=== PATIENT | male | born 1980 | race Caucasian/White ===

== ENCOUNTER 2016-03-31 13:08 | Inpatient (IN) | payer BC, OTHER ==
[~2016-03-31] VITALS: Ht 175.3 cm; Wt 75.0 kg
[~2016-03-31 13:08] MED LIST: BACI500O2 TOP; BACL20TA PO; CLON.5 PO; HYDR-3516 PO; LEVO50TA48 PO; MOBI7.5S PO; OMEP20CA5 PO; PAXI40TA PO; PERI8.6T PO; PROP60TA PO; TAMS5CAP OR; ZOFR4TAB3 SL
[2016-03-31 13:32] VITALS: BP 135/71; PULSE 95; RESP 20; TEMP 98.3; O2SAT 98
--- NOTE | 2016-03-31 13:37 | RADRPT ---
EXAM DATE/TIME: 03/31/2016 13:30 [facility] COMPARISON: No previous studies available for comparison. INDICATIONS : Fever. Syncopal episode. MEDICAL HISTORY : Unobtainable. SURGICAL HISTORY : Unobtainable. ENCOUNTER: Initial ACUITY: 1 day PAIN SCORE: Non-responsive. LOCATION: Bilateral chest FINDINGS: A single view of the chest demonstrates the lungs to be symmetrically aerated without evidence of mas s, infiltrate or effusion. The cardiomediastinal contours are unremarkable. Osseous structures are intact. CONCLUSION: No acute disease. Balwinder Goodrich MD on March 31, 2016 at 13:33 Board Certified Radiologist. This report was verified electronically.
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
[2016-03-31] MEDS ORDERED: LORazepam 2 MG/ML VIAL IV PUSH ONE (13:45)
[2016-03-31 13:49] LABS: AUTOMATED NEUTROPHIL # 5.1 TH/MM3 (1.8-7.7); BASOPHIL % 0.2 % (0.0-2.0); EOSINOPHIL % 0.1 % (0.0-4.0); HEMATOCRIT 39.1 % (39.0-51.0); HEMO FLAGS DIFF FINAL; LYMPHOCYTE # 0.9 TH/MM3 (1.0-4.8); MEAN CELL VOLUME 77.8 FL (80.0-100.0); MEAN CORPUSCULAR HEMOGLOBIN 26.5 PG (27.0-34.0); NEUT % 80.7 % (16.0-70.0); PLATELET COUNT 326 TH/MM3 (150-450); RED BLOOD COUNT 5.03 MIL/MM3 (4.50-5.90); RED CELL DISTRIBUTION WIDTH 15.5 % (11.6-17.2); WHITE BLOOD COUNT 6.3 TH/MM3 (4.0-11.0)
[2016-03-31 13:50] LABS: BLOOD, URINE TRACE (NEG); GLUCOSE,URINE NEG (NEG); HYALINE CAST, URINE 1 /lpf (RARE); KETONE, URINE 10 mg/dL (NEG); MUCUS URINE FEW /lpf (OCC); NITRITE,URINE NEG (NEG); SQUAMOUS EPITHELIAL CELL URINE <1 /hpf (0-5); TRANSITIONAL EPI CELLS, URINE <1 /hpf; URINE COLOR YELLOW (YELLW/STRAW)
[2016-03-31 13:52] LABS: COMMENT (UR) CULT NOT INDICATED; CULTURE IF INDICATED CULT NOT INDICATED
[2016-03-31 13:55] LABS: AMPHETAMINE, URINE NEG (NEG); BARBITURATES, URINE NEG (NEG); COCAINE, URINE NEG (NEG)
[2016-03-31 15:24] LABS: ALKALINE PHOSPHATASE 79 U/L (45-117); TOTAL BILIRUBIN ADULT 0.6 MG/DL (0.2-1.0)
[2016-03-31 15:35] LABS: ALT (GPT) 27 U/L (12-78); ANION GAP 11 MEQ/L (5-15); AST (GOT) 26 U/L (15-37); BLOOD UREA NITROGEN 10 MG/DL (7-18); CHLORIDE 96 MEQ/L (98-107); GLOMERULAR FILTRATION RATE 80 ML/MIN (>89); POTASSIUM 4.5 MEQ/L (3.5-5.1); SODIUM (NA) 129 MEQ/L (136-145)
[2016-03-31 15:36] LABS: ACETAMINOPHEN LESS THAN 2.0 MCG/ML (10.0-30.0)
--- NOTE | 2016-03-31 15:58 | RADRPT ---
EXAM DATE/TIME: 03/31/2016 14:33 [facility] COMPARISON: No previous studies available for comparison. INDICATIONS : Altered mental status. RADIATION DOSE: 43.82 CTDIvol (mGy) MEDICAL HISTORY : Non-responsive. SURGICAL HISTORY : Non-responsive. ENCOUNTER: Initial ACUITY: 1 day PAIN SCALE: 3/10 LOCATION: cranial TECHNIQUE: Multiple contiguous axial images were obtained of the head. Using automated exposure control and adj ustment of the mA and/or kV according to patient size, radiation dose was kept as low as reasonably a chievable to obtain optimal diagnostic quality images. FINDINGS: CEREBRUM: The ventricles are normal for age. No evidence of midline shift, mass lesion, hemorrhage or acute in farction. No extra-axial fluid collections are seen. POSTERIOR FOSSA: The cerebellum and brainstem are intact. The 4th ventricle is midline. The cerebellopontine angle i s unremarkable. EXTRACRANIAL: The visualized portion of the orbits is intact. SKULL: The calvaria is intact. No evidence of skull fracture. CONCLUSION: 1. No acute intracranial abnormalities. Shane Alvarez MD on March 31, 2016 at 15:55 Board Certified Radiologist. This report was verified electronically.
[2016-03-31 18:10] VITALS: BP 128/70; PULSE 111; RESP 20; TEMP 98.8; O2SAT 97
[2016-03-31] MEDS ORDERED: BACL20TA PO (18:25)
[2016-03-31] MEDS ORDERED: PAXI40TA PO (18:25)
[2016-03-31] MEDS ORDERED: PRIL20CA9 PO (18:25)
[2016-03-31] MEDS ORDERED: PERI8.6T PO (18:25)
[2016-03-31] MEDS ORDERED: HYDR-3516 PO (18:25)
[2016-03-31] MEDS ORDERED: PROP60TA PO (18:25)
[2016-03-31] MEDS ORDERED: CLON.5 PO (18:25)
[2016-03-31] MEDS ORDERED: BACI500O61 TOPICAL (18:25)
[2016-03-31] MEDS ORDERED: SODIUM CHLORIDE 0.9% FLUSH 5 ML FLUSH FLUSH PRN (19:45)
[2016-03-31] MEDS ORDERED: ONDANSETRON HCL 4 MG/2 ML VIAL IVP PRN (19:45)
[2016-03-31] MEDS ORDERED: BISACODYL 10 MG SUPP PR PRN (19:45)
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
[2016-03-31 19:50] VITALS: BP 163/77; PULSE 97; RESP 18; O2SAT 99
[2016-03-31] MEDS: SODIUM CHLOR 0.9% 1000 ML INJ 1,000 ML IV SCH (20:15)
[2016-03-31] MEDS: SODIUM CHLORIDE 0.9% FLUSH 5 ML FLUSH FLUSH SCH (20:15)
[2016-03-31] MEDS: PROPRANOLOL HCL 20 MG TAB PO SCH (21:50)
[2016-03-31] MEDS: BACLOFEN 20 MG TAB PO SCH (21:50)
[2016-04-01] VITALS (9 sets, daily range): BP systolic 113–145; BP diastolic 55–92; PULSE 68–89; RESP 19–21; TEMP 97–98.9; O2SAT 97–99
[2016-04-01] MEDS: ACETAMINOPHEN 325 MG TAB PO PRN ×2 (00:37→23:36)
[2016-04-01] MEDS: LORazepam 2 MG/ML VIAL IV PUSH PRN (01:33)
[2016-04-01] MEDS: SODIUM CHLOR 0.9% 1000 ML INJ 1,000 ML IV SCH ×2 (03:47→15:38)
[2016-04-01 05:29] LABS: AUTOMATED NEUTROPHIL # 3.8 TH/MM3 (1.8-7.7); BASOPHIL % 0.2 % (0.0-2.0); EOSINOPHIL % 0.4 % (0.0-4.0); HEMATOCRIT 37.4 % (39.0-51.0); HEMO FLAGS DIFF FINAL; LYMPH % 27.9 % (9.0-44.0); LYMPHOCYTE # 1.8 TH/MM3 (1.0-4.8); MEAN CELL VOLUME 77.9 FL (80.0-100.0); MEAN CORPUSCULAR HEMOGLOBIN 26.4 PG (27.0-34.0); MEAN CORPUSCULAR HGB CONC 33.9 % (32.0-36.0); MONO % 12.3 % (0.0-8.0); NEUT % 59.2 % (16.0-70.0); PLATELET COUNT 319 TH/MM3 (150-450); RED BLOOD COUNT 4.79 MIL/MM3 (4.50-5.90); RED CELL DISTRIBUTION WIDTH 15.6 % (11.6-17.2); WHITE BLOOD COUNT 6.4 TH/MM3 (4.0-11.0)
[2016-04-01 05:35] LABS: ALT (GPT) 25 U/L (12-78); ANION GAP 9 MEQ/L (5-15); AST (GOT) 16 U/L (15-37); BLOOD UREA NITROGEN 11 MG/DL (7-18); CHLORIDE 99 MEQ/L (98-107); GLOMERULAR FILTRATION RATE 87 ML/MIN (>89); POTASSIUM 3.9 MEQ/L (3.5-5.1); SODIUM (NA) 132 MEQ/L (136-145)
[2016-04-01 05:39] LABS: ALKALINE PHOSPHATASE 70 U/L (45-117); TOTAL BILIRUBIN ADULT 0.6 MG/DL (0.2-1.0)
[2016-04-01] MEDS ORDERED: PNEUMOCOCCAL POLYVALENT INJ 25 MCG/0.5 ML SYR IM ONE (09:00)
[2016-04-01] MEDS ORDERED: INFLUENZA VIRUS VACCINE (QUADRIVALENT) 0.5 ML SYR IM ONE (09:00)
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
[2016-04-01] MEDS: PARoxetine HCL 20 MG TAB PO SCH (10:54)
[2016-04-01] MEDS: BACLOFEN 20 MG TAB PO SCH ×4 (10:54→22:04)
[2016-04-01] MEDS: SODIUM CHLORIDE 0.9% FLUSH 5 ML FLUSH FLUSH SCH ×2 (10:54→21:00)
[2016-04-01] MEDS: clonazePAM 0.5 MG TAB PO SCH ×3 (10:54→18:00)
[2016-04-01] MEDS: PROPRANOLOL HCL 20 MG TAB PO SCH ×2 (10:55→22:05)
--- NOTE | 2016-04-01 11:54 | EKG ---
Date Performed: 03/31/2016 Time Performed: 13:45:27 PTAGE: 89 years EKG: Sinus rhythm NORMAL ECG NO PREVIOUS TRACING DOCTOR: Elaine Arciniega Interpretating Date/Time 04/01/2016 11:54:06
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
[2016-04-02] VITALS (9 sets, daily range): BP systolic 119–145; BP diastolic 64–87; PULSE 64–88; RESP 18–21; TEMP 97.9–100.2; O2SAT 94–99
--- NOTE | 2016-04-02 05:32 | MG ---
cc: JEVON YANG Lab No: [id number] Date: 04/01/2016 Age: Sex: M Race: NOTE Hyperventilation not performed. INDICATIONS Possible seizure versus psych. Found lying on the ground, shaking all over. He has dystonia. MEDICATIONS 1. Ativan. 2. Roxicodone. 3. Klonopin. 4. Paxil. FINDINGS Some blink and mini-blink activity is noted. Diffuse low amplitude beta rhythms are seen. Some bitemporal muscle artifact is noted. There are no hemisphere asymmetries, still a lot of muscle artifact is seen, this seen bitemporally. The patient is noted to have eye fluttering, sitting up, arms tremoring but this obviously correlates with mini-blink activity and blink artifact. His eyes were noted to roll around. IMPRESSION This is a normal EEG. A lot of blink artifact is noted. No focal abnormalities are noted. No seizure activity is seen. A repeat EEG when he is not blinking so much I think would be helpful. MD JOSSY Monte/NAVID /11:42 PM /5:27 AM
[2016-04-02] MEDS: PARoxetine HCL 20 MG TAB PO SCH (09:00)
[2016-04-02] MEDS: BACLOFEN 20 MG TAB PO SCH ×4 (09:25→21:06)
[2016-04-02] MEDS: PROPRANOLOL HCL 20 MG TAB PO SCH ×2 (09:25→21:06)
[2016-04-02] MEDS: clonazePAM 0.5 MG TAB PO SCH ×3 (09:25→18:00)
[2016-04-02] MEDS: SODIUM CHLORIDE 0.9% FLUSH 5 ML FLUSH FLUSH SCH ×2 (09:26→21:06)
[2016-04-02] MEDS: ACETAMINOPHEN 325 MG TAB PO PRN (12:25)
[2016-04-02] MEDS ORDERED: PAXI40TA PO (12:30)
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
[2016-04-02] MEDS: LORazepam 2 MG/ML VIAL IV PUSH PRN (22:07)
[2016-04-03 05:59] VITALS: BP 140/66; PULSE 87; RESP 18; TEMP 98; O2SAT 96
[2016-04-03] MEDS: LORazepam 2 MG/ML VIAL IV PUSH PRN (06:20)
[2016-04-03 08:00] VITALS: PULSE 62
[2016-04-03 08:34] VITALS: BP 123/77; PULSE 63; RESP 18; TEMP 98.5; O2SAT 100
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
[2016-04-03] MEDS: BACLOFEN 20 MG TAB PO SCH ×2 (09:52→12:58)
[2016-04-03] MEDS: clonazePAM 0.5 MG TAB PO SCH ×2 (09:52→12:58)
[2016-04-03] MEDS: PROPRANOLOL HCL 20 MG TAB PO SCH (09:53)
[2016-04-03] MEDS: PARoxetine HCL 20 MG TAB PO SCH (09:53)
[2016-04-03] MEDS: SODIUM CHLORIDE 0.9% FLUSH 5 ML FLUSH FLUSH SCH (09:54)
[2016-04-03 11:35] VITALS: BP 122/66; PULSE 70; RESP 18; O2SAT 96
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
[2016-04-03] MEDS ORDERED: CLON.5 PO (11:48)
[2016-04-03] MEDS ORDERED: BACL20TA PO (11:49)
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
== END 2016-04-03 15:55 | disposition home or self-care (01) | DRG 71 ==
LOC: NEPC 13:08 → NEDA 19:26 → MERGE 19:46 → OBSVTOIN 19:46 → EDBD 19:46 → NEDA 20:37 → NEPHCDU 23:56
PROVIDERS: ADMIT Hospitalist; ATTEND Hospitalist
DX: G93.40 Encephalopathy, unspecified (principal); E87.1 Hypo-osmolality and hyponatremia; G24.8 Other dystonia; F41.9 Anxiety disorder, unspecified; R53.1 Weakness; F32.9 Major depressive disorder, single episode, unspecified; Z87.820 Personal history of traumatic brain injury; E86.0 Dehydration; R31.9 Hematuria, unspecified; F43.10 Post-traumatic stress disorder, unspecified
CPT/HCPCS: 70450; 71010; 76937; 80053; 80307; 80320; 80329; 81001; 85025; 93005; 95819; G0480; J2060; J7030

== ENCOUNTER 2016-06-10 15:05 | Emergency (ER) | payer BC, OTHER ==
[~2016-06-10 15:05] MED LIST changes: +BACI500O61 TOPICAL; +PRIL20CA9 PO
[2016-06-10] MEDS ORDERED: SODIUM CHLOR 0.9% 1000 ML INJ 1,000 ML IV ONE (15:22)
[2016-06-10] MEDS ORDERED: ONDANSETRON HCL 4 MG/2 ML VIAL IVP ONE (15:30)
[2016-06-10] MEDS ORDERED: SODIUM CHLORIDE 0.9% FLUSH 10 ML FLUSH IVF PRN (15:30)
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
[2016-06-10] MEDS ORDERED: PROZ40CA PO (15:35)
[2016-06-10] MEDS ORDERED: CLAR10CA3 PO (15:35)
[2016-06-10] MEDS ORDERED: OXCA600T PO (15:35)
[2016-06-10 16:07] LABS: AUTOMATED NEUTROPHIL # 2.9 TH/MM3 (1.8-7.7); BASOPHIL % 0.8 % (0.0-2.0); EOSINOPHIL # 0.1 TH/MM3 (0-0.4); EOSINOPHIL % 2.1 % (0.0-4.0); HEMATOCRIT 31.7 % (39.0-51.0); LYMPHOCYTE # 1.7 TH/MM3 (1.0-4.8); MEAN CELL VOLUME 76.8 FL (80.0-100.0); MEAN CORPUSCULAR HEMOGLOBIN 24.7 PG (27.0-34.0); MEAN CORPUSCULAR HGB CONC 32.2 % (32.0-36.0); MONO % 9.5 % (0.0-8.0); NEUT % 55.6 % (16.0-70.0); PLATELET COUNT 471 TH/MM3 (150-450); RED BLOOD COUNT 4.13 MIL/MM3 (4.50-5.90); RED CELL DISTRIBUTION WIDTH 15.1 % (11.6-17.2); WHITE BLOOD COUNT 5.2 TH/MM3 (4.0-11.0)
[2016-06-10 16:13] LABS: HEMO FLAGS AUTO DIFF
[2016-06-10 16:17] VITALS: BP_SYST 138; BP_SYST 142; BP_SYST 147; BP_DIAS 60; BP_DIAS 68; RESP 16; RESP 18; O2SAT 98
[2016-06-10 16:25] LABS: CHLORIDE 102 MEQ/L (98-107); POTASSIUM 3.6 MEQ/L (3.5-5.1); SODIUM (NA) 137 MEQ/L (136-145)
[2016-06-10 16:28] LABS: ANION GAP 12 MEQ/L (5-15)
[2016-06-10 16:29] LABS: BLOOD UREA NITROGEN 11 MG/DL (7-18); MAGNESIUM 2.2 MG/DL (1.5-2.5)
[2016-06-10 16:31] LABS: ALT (GPT) 28 U/L (12-78)
[2016-06-10 16:32] LABS: AST (GOT) 22 U/L (15-37); GLOMERULAR FILTRATION RATE 112 ML/MIN (>89)
[2016-06-10 16:33] LABS: TOTAL BILIRUBIN ADULT 0.4 MG/DL (0.2-1.0)
[2016-06-10 16:34] LABS: ALKALINE PHOSPHATASE 78 U/L (45-117)
--- NOTE | 2016-06-10 16:37 | RADHPO ---
EXAM DATE/TIME: 06/10/2016 16:18 [facility] COMPARISON: No previous studies available for comparison. INDICATIONS : Chest discomfort. MEDICAL HISTORY : None. SURGICAL HISTORY : None. ENCOUNTER: Initial ACUITY: 1 day PAIN SCORE: 6/10 LOCATION: Bilateral chest FINDINGS: A single view of the chest demonstrates heart size upper limits normal. No pneumothorax. No focal con solidation or significant effusion. No acute bony abnormality. CONCLUSION: 1. No acute findings. Shane Alvarez MD on June 10, 2016 at 16:34 Board Certified Radiologist. This report was verified electronically.
[2016-06-10 16:42] LABS: SCAN/DIFF AUTO DIFF CONFIRMED
--- NOTE | 2016-06-10 17:03 | RADHPO ---
EXAM DATE/TIME: 06/10/2016 16:33 [facility] COMPARISON: No previous studies available for comparison. INDICATIONS : Fell and hit left temporal area. RADIATION DOSE: 59.11 CTDIvol (mGy) MEDICAL HISTORY : Cervical dystonia SURGICAL HISTORY : None. ENCOUNTER: Initial ACUITY: 1 day PAIN SCALE: 3/10 LOCATION: Left temporal TECHNIQUE: Multiple contiguous axial images were obtained of the head. Using automated exposure control and adj ustment of the mA and/or kV according to patient size, radiation dose was kept as low as reasonably a chievable to obtain optimal diagnostic quality images. FINDINGS: CEREBRUM: The ventricles are normal for age. No evidence of midline shift, mass lesion, hemorrhage or acute in farction. No extra-axial fluid collections are seen. POSTERIOR FOSSA: The cerebellum and brainstem are intact. The 4th ventricle is midline. The cerebellopontine angle i s unremarkable. EXTRACRANIAL: The visualized portion of the orbits is intact. SKULL: The calvaria is intact. No evidence of skull fracture. CONCLUSION: Normal examination for a patient of this age. Shaen Alvarez MD on June 10, 2016 at 16:55 Board Certified Radiologist. This report was verified electronically.
--- NOTE | 2016-06-10 17:07 | RADHPO ---
EXAM DATE/TIME: 06/10/2016 16:33 [facility] COMPARISON: CT CERVICAL SPINE W/O CONTRAST, February 05, 2016, 6:48. INDICATIONS : Fell and hit left side of head. RADIATION DOSE: 26.69 CTDIvol (mGy) MEDICAL HISTORY : Cervical dystonia. SURGICAL HISTORY : None. ENCOUNTER: Initial ACUITY: 1 day PAIN SCALE: 4/10 LOCATION: neck TECHNIQUE: Volumetric scanning of the cervical spine was performed. Multiplanar reconstructions in the sagittal, coronal and oblique axial planes were performed. Using automated exposure control and adjustment o f the mA and/or kV according to patient size, radiation dose was kept as low as reasonably achievable to obtain optimal diagnostic quality images. FINDINGS: VERTEBRAE: Normal vertebral body height. ALIGNMENT: No evidence of subluxation. C2-C3: The bony spinal canal is normal in size. No evidence of disc bulge or herniation. The neural forami na are bilaterally patent. C3-C4: The bony spinal canal is normal in size. No evidence of disc bulge or herniation. The neural forami na are bilaterally patent. C4-C5: The bony spinal canal is normal in size. No evidence of disc bulge or herniation. The neural forami na are bilaterally patent. C5-C6: The bony spinal canal is normal in size. No evidence of disc bulge or herniation. The neural forami na are bilaterally patent. C6-C7: The bony spinal canal is normal in size. No evidence of disc bulge or herniation. The neural forami na are bilaterally patent. C7-T1: The bony spinal canal is normal in size. No evidence of disc bulge or herniation. The neural forami na are bilaterally patent. CONCLUSION: 1. No acute findings. Slight reversal of normal cervical lordosis. No significant change from Decembe r 2016. Shane Alvarez MD on June 10, 2016 at 17:02 Board Certified Radiologist. This report was verified electronically.
[2016-06-10] MEDS ORDERED: KETOROLAC TROMETHAMINE 30 MG/ML (IVP) VIAL IV PUSH ONE (17:15)
[2016-06-10 17:22] LABS: AMPHETAMINE, URINE NEG (NEG); BARBITURATES, URINE NEG (NEG); COCAINE, URINE NEG (NEG)
--- NOTE | 2016-06-11 11:46 | EKG ---
Date Performed: 06/10/2016 Time Performed: 15:19:20 PTAGE: 36 years EKG: Sinus rhythm . Normal ECG PREVIOUS TRACING : 12/09/2014 22.08 Compared to prior tracing no significant change DOCTOR: Emmanuel Raman Interpretating Date/Time 06/11/2016 11:45:30
== END 2016-06-10 17:38 | disposition home or self-care (01) ==
LOC: PHED 15:05
DX: R55 Syncope and collapse (principal); S09.90XA Unspecified injury of head, initial encounter; R51 Headache; M54.2 Cervicalgia; K21.9 Gastro-esophageal reflux disease without esophagitis; G24.9 Dystonia, unspecified; W22.09XA Striking against other stationary object, initial encounter; Y93.89 Activity, other specified; Y92.511 Restaurant or cafe as the place of occurrence of the external cause; Y99.8 Other external cause status
CPT/HCPCS: 70450; 71010; 72125; 80053; 80307; 83735; 85025; 93005; 96361; 96374; 96375; 99284; J1885; J2405; J7030

== ENCOUNTER 2016-06-25 00:57 | Emergency (ER) | payer BC, OTHER ==
[~2016-06-25] VITALS: Ht 175.3 cm; Wt 68.0 kg
[~2016-06-25 00:57] MED LIST changes: -BACI500O2 TOP; -BACI500O61 TOPICAL; -BACL20TA PO; +CLAR10CA3 PO; -LEVO50TA48 PO; -MOBI7.5S PO; -OMEP20CA5 PO; +OXCA600T PO; -PAXI40TA PO; -PERI8.6T PO; -PRIL20CA9 PO; -PROP60TA PO; +PROZ40CA PO; -TAMS5CAP OR; -ZOFR4TAB3 SL
[2016-06-25 01:00] VITALS: BP 139/90; PULSE 92; RESP 16; TEMP 97.4; O2SAT 100
[2016-06-25] MEDS ORDERED: SODIUM CHLOR 0.9% 1000 ML INJ 1,000 ML IV SCH (01:37)
[2016-06-25 01:39] VITALS: RESP 18; O2SAT 100
[2016-06-25] MEDS ORDERED: TAMS5CAP PO (01:39)
[2016-06-25] MEDS ORDERED: ONDANSETRON HCL 4 MG/2 ML VIAL IVP ONE (01:45)
[2016-06-25] MEDS ORDERED: SODIUM CHLORIDE 0.9% FLUSH 10 ML FLUSH IV FLUSH PRN (01:45)
[2016-06-25 02:08] LABS: AUTOMATED NEUTROPHIL # 3.2 TH/MM3 (1.8-7.7); BASOPHIL % 0.5 % (0.0-2.0); EOSINOPHIL # 0.2 TH/MM3 (0-0.4); EOSINOPHIL % 2.8 % (0.0-4.0); HEMATOCRIT 35.3 % (39.0-51.0); HEMO FLAGS DIFF FINAL; LYMPH % 32.4 % (9.0-44.0); LYMPHOCYTE # 1.9 TH/MM3 (1.0-4.8); MEAN CELL VOLUME 77.6 FL (80.0-100.0); MEAN CORPUSCULAR HEMOGLOBIN 25.7 PG (27.0-34.0); MEAN CORPUSCULAR HGB CONC 33.1 % (32.0-36.0); MONO % 10.7 % (0.0-8.0); NEUT % 53.6 % (16.0-70.0); PLATELET COUNT 343 TH/MM3 (150-450); RED BLOOD COUNT 4.54 MIL/MM3 (4.50-5.90); RED CELL DISTRIBUTION WIDTH 16.7 % (11.6-17.2)
[2016-06-25 02:09] LABS: BLOOD, URINE NEG (NEG); COMMENT (UR) CULT NOT INDICATED; CULTURE IF INDICATED CULT NOT INDICATED; GLUCOSE,URINE NEG (NEG); KETONE, URINE NEG (NEG); NITRITE,URINE NEG (NEG); PH, URINE 5.5 (5.0-8.5); URINE COLOR LIGHT-YELLOW (YELLW/STRAW)
[2016-06-25 02:16] LABS: ALKALINE PHOSPHATASE 114 U/L (45-117); TOTAL BILIRUBIN ADULT 0.3 MG/DL (0.2-1.0)
[2016-06-25 02:17] LABS: ALT (GPT) 30 U/L (12-78); ANION GAP 8 MEQ/L (5-15); AST (GOT) 50 U/L (15-37); BICARBONATE 27.8 MEQ/L (21.0-32.0); BLOOD UREA NITROGEN 7 MG/DL (7-18); CHLORIDE 101 MEQ/L (98-107); GLOMERULAR FILTRATION RATE 91 ML/MIN (>89); SODIUM (NA) 137 MEQ/L (136-145)
[2016-06-25 02:18] LABS: POTASSIUM 4.2 MEQ/L (3.5-5.1)
--- NOTE | 2016-06-25 02:39 | PD ---
HPI Chief Complaint: Abdominal Pain Time Seen by Provider: 02:27 Travel History International Travel<30 days: No Contact w/Intl Traveler<30days: No Traveled to known affect area: No History of Present Illness HPI 36-year-old male with history of alcohol abuse, polysubstance use, presents to the ER today because he states that he is having "withdrawal symptoms". He has not taken his benzodiazepine dosage in about 2 days. He states he feels tremors , feels withdrawals, and has been having nausea, vomiting. He states that he is on a medication Quail on a regular basis and has taken it today. He denies any fevers, chest pains, shortness of breath, seizures, or any other symptoms. He states that he is trying to take control of his life and trying to get off of the medication. Modifying Factors: None Associated Signs & Symptoms: Withdrawal symptoms, nausea, vomiting for several days Risk Factors: Try to get off of his benzodiazepine anxiety medications PFSH Past Medical History Blood Disorders: No Anxiety: Yes Depression: Yes Cancer: No Cardiovascular Problems: No Diminished Hearing: No Endocrine: No Gastrointestinal Disorders: No GERD: Yes Genitourinary: Yes (ENLARGE PROSTATE) Headaches: No Heparin Induced Thrombocytopen: No Hypertension: No Immune Disorder: No Implanted Vascular Access Dvce: No Musculoskeletal: Yes (DYSTONIA) Neurologic: Yes (TBI, cervical dystonia) Reproductive: No Respiratory: No Immunizations Current: Yes Pancreatitis: Yes Seizures: Yes Thyroid Disease: Yes Influenza Vaccination: No PNEUMOCCOCAL Vaccine (Year): 1 Past Surgical History Other Surgery: Yes (BLADDER) Social History Alcohol Use: Yes (RARELY) Tobacco Use: No Substance Use: No Allergies-Medications (Allergen,Severity, Reaction): Coded Allergies: Penicillin (Verified Allergy, Unknown, Swelling, 06/25/16) Reported Meds & Prescriptions Reported Meds & Active Scripts Active Klonopin (Clonazepam) 0.5 Mg Tab 0.5 Mg PO TID Hydrocodone-Acetaminophen 5-325 mg Tab 1 Tab PO Q4-6H PRN Reported Flomax (Tamsulosin HCl) 0.4 Mg Cap 0.4 Mg PO HS Prozac (Fluoxetine HCl) 40 Mg Cap 40 Mg PO DAILY Claritin (Loratadine) 10 Mg Cap 10 Mg PO DAILY Oxcarbazepine 600 Mg Tab 600 Mg PO BID Review of Systems Except as stated in HPI: all other systems reviewed are Neg Physical Exam Narrative GENERAL: Well-developed middle age male patient who has mild tremulousness, mild distress, but awake, and oriented 3. SKIN: Focused skin assessment warm/dry. HEAD: Atraumatic. Normocephalic. EYES: Pupils equal and round. No scleral icterus. No injection or drainage. ENT: No nasal bleeding or discharge. Mucous membranes pink and moist. NECK: Trachea midline. No JVD. CARDIOVASCULAR: Regular rate and rhythm. No murmur appreciated. RESPIRATORY: No accessory muscle use. Clear to auscultation. Breath sounds equal bilaterally. GASTROINTESTINAL: Abdomen soft, non-tender, nondistended. Hepatic and splenic margins not palpable. MUSCULOSKELETAL: No obvious deformities. No clubbing. No cyanosis. No edema. NEUROLOGICAL: Awake and alert. No obvious cranial nerve deficits. Motor grossly within normal limits. Normal speech. PSYCHIATRIC: Appropriate mood and affect; insight and judgment normal. Data Data Last Documented VS Vital Signs Date Time Temp Pulse Resp B/P Pulse Ox O2 Delivery O2 Flow Rate FiO2 06/25/16 01:39 18 100 Room Air 06/25/16 01:00 97.4 92 139/90 Orders Complete Blood Count With Diff (06/25/16 01:37) Comprehensive Metabolic Panel (06/25/16 01:37) Lipase (06/25/16 01:37) Urinalysis - C+S If Indicated (06/25/16 01:37) Iv Access Insert/Monitor (06/25/16 01:37) Ecg Monitoring (06/25/16 01:37) Oximetry (06/25/16 01:37) Ondansetron Inj (Zofran Inj) (06/25/16 01:45) Sodium Chlor 0.9% 1000 Ml Inj (Ns 1000 M (06/25/16 01:37) Sodium Chloride 0.9% Flush (Ns Flush) (06/25/16 01:45) Ibuprofen (Motrin) (06/25/16 03:00) Labs Laboratory Tests Test 06/25/16 01:45 White Blood Count 6.0 TH/MM3 Red Blood Count 4.54 MIL/MM3 Hemoglobin 11.7 GM/DL Hematocrit 35.3 % Mean Corpuscular Volume 77.6 FL Mean Corpuscular Hemoglobin 25.7 PG Mean Corpuscular Hemoglobin 33.1 % Concent Red Cell Distribution Width 16.7 % Platelet Count 343 TH/MM3 Mean Platelet Volume 9.3 FL Neutrophils (%) (Auto) 53.6 % Lymphocytes (%) (Auto) 32.4 % Monocytes (%) (Auto) 10.7 % Eosinophils (%) (Auto) 2.8 % Basophils (%) (Auto) 0.5 % Neutrophils # (Auto) 3.2 TH/MM3 Lymphocytes # (Auto) 1.9 TH/MM3 Monocytes # (Auto) 0.6 TH/MM3 Eosinophils # (Auto) 0.2 TH/MM3 Basophils # (Auto) 0.0 TH/MM3 CBC Comment DIFF FINAL Differential Comment Urine Color LIGHT-YELLOW Urine Turbidity CLEAR Urine pH 5.5 Urine Specific [place] 1.004 Urine Protein NEG mg/dL Urine Glucose (UA) NEG mg/dL Urine Ketones NEG mg/dL Urine Occult Blood NEG Urine Nitrite NEG Urine Bilirubin NEG Urine Urobilinogen LESS THAN 2.0 MG/DL Urine Leukocyte Esterase NEG Urine WBC 1 /hpf Microscopic Urinalysis Comment CULT NOT INDICATED Sodium Level 137 MEQ/L Potassium Level 4.2 MEQ/L Chloride Level 101 MEQ/L Carbon Dioxide Level 27.8 MEQ/L Anion Gap 8 MEQ/L Blood Urea Nitrogen 7 MG/DL Creatinine 0.94 MG/DL Estimat Glomerular Filtration 91 ML/MIN Rate Random Glucose 99 MG/DL Calcium Level 8.9 MG/DL Total Bilirubin 0.3 MG/DL Aspartate Amino Transf 50 U/L (AST/SGOT) Alanine Aminotransferase 30 U/L (ALT/SGPT) Alkaline Phosphatase 114 U/L Total Protein 7.8 GM/DL Albumin 4.0 GM/DL Lipase 89 U/L [facility] Medical Decision Making Medical Screen Exam Complete: Yes Emergency Medical Condition: Yes Medical Record Reviewed: Yes Interpretation(s) Laboratory Tests Test 06/25/16 01:45 Hemoglobin 11.7 GM/DL (13.0-17.0) Hematocrit 35.3 % (39.0-51.0) Mean Corpuscular Volume 77.6 FL (80.0-100.0) Mean Corpuscular Hemoglobin 25.7 PG (27.0-34.0) Monocytes (%) (Auto) 10.7 % (0.0-8.0) Aspartate Amino Transf 50 U/L (15-37) (AST/SGOT) Differential Diagnosis Tremulousness, withdrawal symptoms, vomitingbenzodiazepine withdrawal versus opiate withdrawal versus metabolic issues versus gastroenteritis Narrative Course Patient has no focal neurological deficit currently. He is not vomiting. Lab work did not indicate significant electrolyte abnormalities or dehydration. At this point, symptoms are chronic according to the patient himself. He has history of torticollis as well and he has been on Quail. I would not add any additional things to this at this point. He should follow-up with his neurologist and primary care physician. He states that they had talked to him about possibly getting Botox injections for his torticollis. He should follow- up for this as necessary. Return for new issues or worsening symptoms as needed. Plan was discussed with him and he states understanding. Diagnosis Primary Impression: Benzodiazepine withdrawal without complication Med/Other Pt SpecificInfo: Prescription(s) given Scripts Ondansetron Odt (Zofran Odt)4 Mg Tab4 Mg SL Q6HR PRN (Nausea/Vomiting) #7 TAB Ref 0 Prov:Alex Rico MD 06/25/16 Disposition: 01 DISCHARGE HOME Condition: Stable Alex Rico MD June 25, 2016 02:39
[2016-06-25] MEDS ORDERED: ZOFR4TAB3 SL (02:54)
[2016-06-25] MEDS ORDERED: IBUPROFEN 600 MG TAB PO ONE (03:00)
== END 2016-06-25 03:48 | disposition home or self-care (01) ==
LOC: NEPC 00:57
DX: F13.230 Sedative, hypnotic or anxiolytic dependence with withdrawal, uncomplicated (principal); R11.2 Nausea with vomiting, unspecified; E07.9 Disorder of thyroid, unspecified; M43.6 Torticollis; Z86.59 Personal history of other mental and behavioral disorders; Z87.19 Personal history of other diseases of the digestive system; Z87.438 Personal history of other diseases of male genital organs; Z87.39 Personal history of other diseases of the musculoskeletal system and connective tissue; Z86.69 Personal history of other diseases of the nervous system and sense organs
CPT/HCPCS: 80053; 81001; 83690; 85025; 96374; 99284; J2405; J7030

== ENCOUNTER 2016-06-25 10:49 | Emergency (ER) | payer BC ==
[~2016-06-25 10:49] MED LIST changes: +TAMS5CAP PO; +ZOFR4TAB3 SL
[2016-06-25 10:59] VITALS: BP 102/58; PULSE 77; RESP 16; TEMP 98; O2SAT 96
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
[2016-06-25 14:38] VITALS: BP 102/61; PULSE 65; RESP 16; O2SAT 99
[2016-06-25 16:37] LABS: BLOOD GAS BASE EXCESS -1.2 mmol/L (-2-2); BLOOD GAS HCO3 24 mmol/L (22-26); BLOOD GAS METHEMOGLOBIN 0.5 % (0-2); BLOOD GAS O2 HGB SATURATION 95 % (90-100); BLOOD GAS OXYGEN CONTENT 14.9 Vol % (12.0-20.0); BLOOD GAS PCO2 44 mmHg (38-42); BLOOD GAS PO2 86 mmHG (61-120); BLOOD GAS TOTAL HGB 11.1 G/DL (12.0-16.0); TEMP CORR TO 98.6
[2016-06-25 16:37] LABS: AUTOMATED NEUTROPHIL # 4.3 TH/MM3 (1.8-7.7); BASOPHIL % 0.2 % (0.0-2.0); EOSINOPHIL # 0.1 TH/MM3 (0-0.4); EOSINOPHIL % 1.7 % (0.0-4.0); HEMATOCRIT 31.4 % (39.0-51.0); HEMO FLAGS DIFF FINAL; LYMPHOCYTE # 1.6 TH/MM3 (1.0-4.8); MEAN CELL VOLUME 77.4 FL (80.0-100.0); MEAN CORPUSCULAR HEMOGLOBIN 25.1 PG (27.0-34.0); MEAN CORPUSCULAR HGB CONC 32.5 % (32.0-36.0); NEUT % 63.1 % (16.0-70.0); PLATELET COUNT 270 TH/MM3 (150-450); RED BLOOD COUNT 4.06 MIL/MM3 (4.50-5.90); RED CELL DISTRIBUTION WIDTH 16.6 % (11.6-17.2); WHITE BLOOD COUNT 6.9 TH/MM3 (4.0-11.0)
[2016-06-25 16:38] LABS: CRITICAL VALUE NO; DRAW SITE RT RADIAL; NUMBER OF ARTERIAL PUNCTURES 1; OXYGEN DEVICE ROOM AIR; STAT YES; ULNAR PULSE PRESENT
[2016-06-25 16:41] LABS: AMPHETAMINE, URINE NEG (NEG); BARBITURATES, URINE NEG (NEG); COCAINE, URINE NEG (NEG)
[2016-06-25 16:54] LABS: ACETAMINOPHEN LESS THAN 2.0 MCG/ML (10.0-30.0); ALKALINE PHOSPHATASE 104 U/L (45-117); TOTAL BILIRUBIN ADULT 0.2 MG/DL (0.2-1.0)
[2016-06-25 17:14] LABS: ALT (GPT) 25 U/L (12-78); ANION GAP 11 MEQ/L (5-15); AST (GOT) 23 U/L (15-37); BICARBONATE 23.7 MEQ/L (21.0-32.0); BLOOD UREA NITROGEN 7 MG/DL (7-18); CHLORIDE 99 MEQ/L (98-107); GLOMERULAR FILTRATION RATE 120 ML/MIN (>89); POTASSIUM 4.3 MEQ/L (3.5-5.1); SODIUM (NA) 134 MEQ/L (136-145)
[2016-06-25 17:38] VITALS: BP 107/59
[2016-06-25 20:52] VITALS: BP 123/54; PULSE 64; RESP 19; O2SAT 97
[2016-06-26 02:16] VITALS: BP 101/50; PULSE 62; RESP 16; O2SAT 97
[2016-06-26 06:35] VITALS: BP 103/52; PULSE 59; RESP 19; O2SAT 98
[2016-06-26 09:56] VITALS: BP 103/52; PULSE 59; RESP 19; O2SAT 98
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
== END 2016-06-26 11:20 | disposition home or self-care (01) ==
LOC: NEPE 10:49 → NEPJ 06-26 11:20
DX: F19.10 Other psychoactive substance abuse, uncomplicated (principal); F43.25 Adjustment disorder with mixed disturbance of emotions and conduct; E07.9 Disorder of thyroid, unspecified; Z76.5 Malingerer [conscious simulation]; Z86.59 Personal history of other mental and behavioral disorders; Z87.19 Personal history of other diseases of the digestive system; Z87.438 Personal history of other diseases of male genital organs; Z87.39 Personal history of other diseases of the musculoskeletal system and connective tissue; Z86.69 Personal history of other diseases of the nervous system and sense organs
CPT/HCPCS: 36600; 80053; 80307; 82805; 85025; 99284

== ENCOUNTER 2016-11-21 15:59 | Inpatient (IN) | payer SELFPAY ==
[~2016-11-21] VITALS: Ht 172.7 cm; Wt 76.6 kg
[2016-11-21] VITALS (7 sets, daily range): BP systolic 11–123; BP diastolic 56–76; PULSE 49–110; RESP 18–23; TEMP 97.5; O2SAT 96–100
[2016-11-21] MEDS ORDERED: SODIUM CHLOR 0.9% 1000 ML INJ 1,000 ML IV ONE (16:09)
[2016-11-21] MEDS ORDERED: SODIUM CHLORIDE 0.9% FLUSH 10 ML FLUSH IVF PRN (16:15)
--- NOTE | 2016-11-21 16:24 | PD ---
HPI Chief Complaint: OD/ Ingestion Time Seen by Provider: 16:09 Travel History International Travel<30 days: No Contact w/Intl Traveler<30days: No Traveled to known affect area: No History of Present Illness HPI Patient comes in for possible overdose that occurred shortly prior to arrival. Per EMS patient was in the bathroom at [employer] for approximate 45 minutes and was found unconscious. Patient was administered 0.8 mg of Narcan by EMS and seemed to wake him some however patient still conscious and responding to painful stimuli thus limiting H&P. PFSH Past Medical History Blood Disorders: No Anxiety: Yes Depression: Yes Cancer: No Cardiovascular Problems: No Diminished Hearing: No Endocrine: No Gastrointestinal Disorders: No GERD: Yes Genitourinary: Yes (ENLARGE PROSTATE) Headaches: No Heparin Induced Thrombocytopen: No Hypertension: No Immune Disorder: No Implanted Vascular Access Dvce: No Musculoskeletal: Yes (DYSTONIA) Neurologic: Yes (TBI, cervical dystonia) Reproductive: No Respiratory: No Immunizations Current: Yes Pancreatitis: Yes Seizures: Yes Thyroid Disease: Yes PNEUMOCCOCAL Vaccine (Year): 1 Past Surgical History Other Surgery: Yes (BLADDER) Social History Alcohol Use: Yes (RARELY) Tobacco Use: No Substance Use: No Allergies-Medications (Allergen,Severity, Reaction): Coded Allergies: penicillin G (Unverified Allergy, Unknown, Swelling, 10/09/16) Reported Meds & Prescriptions Reported Meds & Active Scripts Active Zofran Odt (Ondansetron Odt) 4 Mg Tab 4 Mg SL Q6HR PRN Klonopin (Clonazepam) 0.5 Mg Tab 0.5 Mg PO TID Hydrocodone-Acetaminophen 5-325 mg Tab 1 Tab PO Q4-6H PRN Reported Flomax (Tamsulosin HCl) 0.4 Mg Cap 0.4 Mg PO HS Prozac (Fluoxetine HCl) 40 Mg Cap 40 Mg PO DAILY Claritin (Loratadine) 10 Mg Cap 10 Mg PO DAILY Oxcarbazepine 600 Mg Tab 600 Mg PO BID Review of Systems ROS Limitations: Clinical Condition Except as stated in HPI: all other systems reviewed are Neg Physical Exam Exam Limitations: Clinical Condition Narrative GENERAL: Well-developed, overly nourished, in no acute distress, and non-ill appearing. SKIN: Focused skin assessment warm and dry. HEAD: Atraumatic. Normocephalic. EYES: Pupils equal and round. EOMI. No scleral icterus. No injection or drainage. ENT: No nasal bleeding or discharge. Mucous membranes pink and moist. Gag reflex noted. NECK: Trachea midline. Supple. No nuclear rigidity. CARDIOVASCULAR: Regular rate and rhythm. No murmur appreciated. RESPIRATORY: No accessory muscle use. No respiratory distress. Scant wheezing noted left lower lobe. GASTROINTESTINAL: Abdomen soft, non-tender, nondistended, and no guarding. Hepatic and splenic margins not palpable. Normal bowel sounds 4. No pulsatile mass. MUSCULOSKELETAL: No obvious deformities. No clubbing. No cyanosis. No edema. Full range of motion. NEUROLOGICAL: No obvious cranial nerve deficits. Data Data Last Documented VS Vital Signs Date Time Temp Pulse Resp B/P (MAP) Pulse Ox O2 Delivery O2 Flow Rate FiO2 11/21/16: (74) Room Air 11/21/16 16:07 64 20 100 Orders Orders Electrocardiogram (11/21/16 16:09) Basic Metabolic Panel (Bmp) (11/21/16 16:09) Complete Blood Count With Diff (11/21/16 16:09) Prothrombin Time / Inr (Pt) (11/21/16 16:09) Act Partial Throm Time (Ptt) (11/21/16 16:09) Urinalysis - C+S If Indicated (11/21/16 16:09) Chest, Single Ap (11/21/16 16:09) Ct Brain W/O Iv Contrast(Rout) (11/21/16 16:09) Iv Access Insert/Monitor (11/21/16 16:09) Cath For Specimen (11/21/16 16:09) Ecg Monitoring (11/21/16 16:09) Oximetry (11/21/16 16:09) Sodium Chloride 0.9% Flush (Ns Flush) (11/21/16 16:15) Sodium Chlor 0.9% 1000 Ml Inj (Ns 1000 M (11/21/16 16:09) Drug Screen, Random Urine (11/21/16 16:09) Alcohol (Ethanol) (11/21/16 16:09) Salicylates (Aspirin) (11/21/16 16:09) Tylenol (Acetaminophen) (11/21/16 16:09) Ammonia (11/21/16 16:24) Creatine Kinase (Cpk) (11/21/16 16:24) Troponin I (11/21/16 16:24) Blood Glucose (11/21/16 16:24) Sodium Chloride 0.9% Flush (Ns Flush) (11/21/16 16:30) Hepatic Functional Panel (11/21/16 16:24) Lorazepam Inj (Ativan Inj) (11/21/16 16:30) Naloxone Inj (Narcan Inj) (11/21/16 17:00) Comprehensive Metabolic Panel (11/22/16 06:00) Free Thyroxine (T4) (11/22/16 06:00) Hemoglobin (Hgb) A1c (11/22/16 06:00) Magnesium (Mg) (11/22/16 06:00) Phosphorus (Po4) (11/22/16 06:00) Thyroid Stimulating Hormone (11/22/16 06:00) Complete Blood Count With Diff (11/22/16 06:00) Admit To Inpatient (11/21/16 ) Code Status (11/21/16 18:24) Vital Signs (Adult) Q4H (11/21/16 18:24) Neuro Checks Q4H (11/21/16 18:24) Activity Bed Rest (11/21/16 18:24) Bedside Glucose MAE.CSUGAR (11/21/16 18:24) Switch Operator / Telemetry .CONTINUOUS (11/21/16 18:24) Intake + Output MAE.QSHIFT (11/21/16 18:24) Diet Npo (11/21/16 Dinner) D5-1/2 Ns + Kcl 20 Meq Inj (D5-1/2 Ns + (11/21/16 18:24) Sodium Chloride 0.9% Flush (Ns Flush) (11/21/16 18:30) Sodium Chloride 0.9% Flush (Ns Flush) (11/21/16 21:00) Acetaminophen (Tylenol) (11/21/16 18:30) Ondansetron Inj (Zofran Inj) (11/21/16 18:30) Prochlorperazine Supp (Compazine Supp) (11/21/16 18:30) Creatine Kinase (Cpk) (11/21/16 18:24) Creatine Kinase (Cpk) (11/22/16 00:24) Creatine Kinase (Cpk) (11/22/16 06:24) Troponin I (11/21/16 18:24) Troponin I (11/22/16 00:24) Troponin I (11/22/16 06:24) Electrocardiogram (11/21/16 18:24) Resp Oxygen Baldo C Titrat 1-4 L (11/21/16 ) Pt Request For Service (11/21/16 18:24) Ot Request For Service (11/21/16 18:24) Case Management Consult (11/21/16 18:24) Scd Bilateral/Knee High MAE.BID (11/21/16 18:24) Rolan Bilateral/Knee High MAE.QSHIFT (11/21/16 18:30) Ibuprofen (Motrin) (11/21/16 18:30) Morphine Inj (Morphine Inj) (11/21/16 18:30) Tramadol (Ultram) (11/21/16 18:30) Tramadol (Ultram) (11/21/16 18:30) Naloxone Inj (Narcan Inj) (11/21/16 18:30) Docusate Sodium-Senna (Fabby-Colace) (11/21/16 21:00) Magnesium Hydroxide Liq (Milk Of Magnesi (11/21/16 18:30) Sennosides (Senokot) (11/21/16 18:30) Bisacodyl Supp (Dulcolax Supp) (11/21/16 18:30) Lactulose Liq (Lactulose Liq) (11/21/16 18:30) Alcohol Withdrawal Asmt-Ciwa Q4HX18 (11/21/16 18:24) Flumazenil Inj (Romazicon Inj) (11/21/16 18:30) Lorazepam (Ativan) (11/21/16 18:30) Lorazepam Inj (Ativan Inj) (11/21/16 18:30) Lorazepam (Ativan) (11/21/16 18:30) Lorazepam Inj (Ativan Inj) (11/21/16 18:30) Lorazepam Inj (Ativan Inj) (11/21/16 18:30) Lorazepam Inj (Ativan Inj) (11/21/16 18:30) Haloperidol Inj (Haldol Inj) (11/21/16 18:30) Inpatient Certification (11/21/16 ) Oxcarbazepine (Trileptal) (11/21/16 21:00) Tamsulosin (Flomax) (11/21/16 21:00) (Nf) Fluoxetine (Prozac) (11/22/16 09:00) Admit Order (Ed Use Only) (11/21/16 18:29) Pantoprazole (Protonix) (11/21/16 21:00) Drug Screen, Random Urine (11/21/16 18:30) Ur Drug Screen W/Confirmation (11/21/16 18:30) Tylenol (Acetaminophen) (11/21/16 18:31) Salicylates (Aspirin) (11/21/16 18:31) Labs Laboratory Tests Test 11/21/16 16:30 White Blood Count 8.1 TH/MM3 Red Blood Count 4.08 MIL/MM3 Hemoglobin 10.8 GM/DL Hematocrit 32.8 % Mean Corpuscular Volume 80.5 FL Mean Corpuscular Hemoglobin 26.5 PG Mean Corpuscular Hemoglobin Concent 32.9 % Red Cell Distribution Width 17.0 % Platelet Count 326 TH/MM3 Mean Platelet Volume 7.6 FL Neutrophils (%) (Auto) 64.9 % Lymphocytes (%) (Auto) 22.9 % Monocytes (%) (Auto) 10.0 % Eosinophils (%) (Auto) 1.5 % Basophils (%) (Auto) 0.7 % Neutrophils # (Auto) 5.3 TH/MM3 Lymphocytes # (Auto) 1.9 TH/MM3 Monocytes # (Auto) 0.8 TH/MM3 Eosinophils # (Auto) 0.1 TH/MM3 Basophils # (Auto) 0.1 TH/MM3 CBC Comment DIFF FINAL Differential Comment Prothrombin Time 10.0 SEC Prothromb Time International Ratio 0.9 RATIO Activated Partial Thromboplast Time 27.1 SEC Blood Urea Nitrogen 13 MG/DL Creatinine 0.97 MG/DL Random Glucose 74 MG/DL Calcium Level 8.5 MG/DL Sodium Level 138 MEQ/L Potassium Level 4.0 MEQ/L Chloride Level 105 MEQ/L Carbon Dioxide Level 25.7 MEQ/L Anion Gap 7 MEQ/L Estimat Glomerular Filtration Rate 88 ML/MIN Total Bilirubin 0.3 MG/DL Direct Bilirubin 0.1 MG/DL Indirect Bilirubin 0.2 MG/DL Aspartate Amino Transf (AST/SGOT) 30 U/L Alanine Aminotransferase (ALT/SGPT) 27 U/L Alkaline Phosphatase 82 U/L Ammonia 42 MCMOL/L Total Creatine Kinase 241 U/L Troponin I LESS THAN 0.02 NG/ML Total Protein 7.0 GM/DL Albumin 3.6 GM/DL Salicylates Level LESS THAN 1.7 MG/DL Acetaminophen Level 4.2 MCG/ML Ethyl Alcohol Level LESS THAN 3 MG/DL MDM Medical Decision Making Medical Screen Exam Complete: Yes Emergency Medical Condition: Yes Medical Record Reviewed: Yes Interpretation(s) CT the head read by the radiologist shows: No acute disease. Chest x-ray read by the radiologist shows: Prominent azygos and vein, otherwise negative. EKG reviewed by Dr. Rico shows sinus bradycardia with a ventricular rate of 55. No STEMI. Differential Diagnosis Overdose, delirium, electrolyte abnormality, pneumonia, intracranial hemorrhage , head injury, encephalopathy, other Narrative Course Patient was seen and examined. Patient was given additional Narcan the caused him to wake up but was becoming combative. Patient was placed in soft restraints for safety of self and staff. Patient continued to be combative pulling out IVs. Patient was given 1 mg of Ativan. Patient to calm down. Airway remained patent. Discussed patient with Dr. Rico, who saw and evaluated the patient and is in agreement with plan of care and disposition. Discussed patient with hospitalist who is agreeable to admit the patient to the ICU for close monitoring secondary to unclear overdose. 1540 patient reassessed found sleeping in bed in no acute distress, easily awoken then falls back to sleep. Gag reflex is present. Patient placed that a Grimm act by Dr. Rico. Physician Communication Physician Communication [address] Lewis, who is agreeable to admit the patient. Diagnosis Primary Impression: Altered mental status Qualified Codes: R41.82 - Altered mental status, unspecified Additional Impression: Overdose Qualified Codes: T50.904A - Poisoning by unspecified drugs, medicaments and biological substances, undetermined, initial encounter Admitting Information Admitting Physician Requests: Admit Condition: Stable Otto Willard Nov 21, 2016 16:24
[2016-11-21] MEDS ORDERED: LORazepam 2 MG/ML VIAL IV PUSH ONE (16:30)
[2016-11-21] MEDS ORDERED: SODIUM CHLORIDE 0.9% FLUSH 5 ML FLUSH IV FLUSH PRN (16:30)
[2016-11-21] MEDS ORDERED: NALOXONE HCL 0.4 MG/ML AMP IV PUSH PRN ×2 (17:00→18:30)
[2016-11-21 17:17] LABS: AUTOMATED NEUTROPHIL # 5.3 TH/MM3 (1.8-7.7); BASOPHIL # 0.1 TH/MM3 (0-0.2); BASOPHIL % 0.7 % (0.0-2.0); EOSINOPHIL # 0.1 TH/MM3 (0-0.4); EOSINOPHIL % 1.5 % (0.0-4.0); HEMATOCRIT 32.8 % (39.0-51.0); HEMO FLAGS DIFF FINAL; LYMPH % 22.9 % (9.0-44.0); LYMPHOCYTE # 1.9 TH/MM3 (1.0-4.8); MEAN CELL VOLUME 80.5 FL (80.0-100.0); MEAN CORPUSCULAR HEMOGLOBIN 26.5 PG (27.0-34.0); MEAN CORPUSCULAR HGB CONC 32.9 % (32.0-36.0); NEUT % 64.9 % (16.0-70.0); PLATELET COUNT 326 TH/MM3 (150-450); RED BLOOD COUNT 4.08 MIL/MM3 (4.50-5.90); WHITE BLOOD COUNT 8.1 TH/MM3 (4.0-11.0)
[2016-11-21 17:22] LABS: APTT (PATIENT) 27.1 SEC (24.3-30.1); INTERNATIONAL NORMALIZED RATIO 0.9 RATIO
--- NOTE | 2016-11-21 17:31 | RADRPT ---
EXAM DATE/TIME: 11/21/2016 17:20 [facility] COMPARISON: CT BRAIN W/O CONTRAST, June 10, 2016, 16:33. INDICATIONS : Altered mental status with drug abuse. RADIATION DOSE: 37.34 CTDIvol (mGy) MEDICAL HISTORY : Seizures. Cervical dystonia, TBI SURGICAL HISTORY : None. ENCOUNTER: Initial ACUITY: 1 day PAIN SCALE: 3/10 LOCATION: Bilateral cranial TECHNIQUE: Multiple contiguous axial images were obtained of the head. Using automated exposure control and adj ustment of the mA and/or kV according to patient size, radiation dose was kept as low as reasonably a chievable to obtain optimal diagnostic quality images. DICOM format image data is available electro nically for review and comparison. FINDINGS: CEREBRUM: The ventricles are normal for age. No evidence of midline shift, mass lesion, hemorrhage or acute in farction. No extra-axial fluid collections are seen. POSTERIOR FOSSA: The cerebellum and brainstem are intact. The 4th ventricle is midline. The cerebellopontine angle i s unremarkable. EXTRACRANIAL: The visualized portion of the orbits is intact. SKULL: The calvaria is intact. No evidence of skull fracture. CONCLUSION: No acute disease. Jose Boyer MD FACR on November 21, 2016 at 17:30 Board Certified Radiologist. This report was verified electronically.
[2016-11-21 17:36] LABS: ACETAMINOPHEN 4.2 MCG/ML (10.0-30.0)
[2016-11-21 17:40] LABS: ALKALINE PHOSPHATASE 82 U/L (45-117); CREATINE KINASE 241 U/L (39-308); TOTAL BILIRUBIN ADULT 0.3 MG/DL (0.2-1.0)
[2016-11-21 17:42] LABS: ALT (GPT) 27 U/L (12-78); ANION GAP 7 MEQ/L (5-15); AST (GOT) 30 U/L (15-37); BICARBONATE 25.7 MEQ/L (21.0-32.0); BLOOD UREA NITROGEN 13 MG/DL (7-18); CHLORIDE 105 MEQ/L (98-107); GLOMERULAR FILTRATION RATE 88 ML/MIN (>89); INDIRECT BILIRUBIN 0.2 MG/DL (0.0-0.8); SODIUM (NA) 138 MEQ/L (136-145)
[2016-11-21 17:43] LABS: ALCOHOL LESS THAN 3 MG/DL (0-5)
--- NOTE | 2016-11-21 17:54 | RADRPT ---
EXAM DATE/TIME: 11/21/2016 17:35 [facility] COMPARISON: CHEST SINGLE AP, June 10, 2016, 16:18. INDICATIONS : Short of breath. MEDICAL HISTORY : Seizures. SURGICAL HISTORY : None. ENCOUNTER: Initial ACUITY: 1 day PAIN SCORE: Non-responsive. LOCATION: Bilateral chest FINDINGS: A single view of the chest demonstrates the lungs to be symmetrically aerated without evidence of mas s, infiltrate or effusion. The cardiomediastinal contours are unremarkable. Prominent azygos vein i s noted. Osseous structures are intact. CONCLUSION: Prominent azygos and vein, Underated, otherwise negative. Jose Boyer MD FACR on November 21, 2016 at 17:52 Board Certified Radiologist. This report was verified electronically.
[2016-11-21] MEDS: D5-1/2 NS + KCL 20 MEQ INJ 1,000 ML IV SCH (18:24)
[2016-11-21] MEDS ORDERED: HALOPERIDOL LACTATE 5 MG/ML AMP IM PRN (18:30)
[2016-11-21] MEDS ORDERED: IBUPROFEN 400 MG TAB PO PRN (18:30)
[2016-11-21] MEDS ORDERED: LORazepam 2 MG TAB PO PRN (18:30)
[2016-11-21] MEDS ORDERED: MORPHINE SULFATE 4 MG/ML INJ IV PUSH PRN (18:30)
[2016-11-21] MEDS ORDERED: SODIUM CHLORIDE 0.9% FLUSH 10 ML FLUSH IV FLUSH PRN (18:30)
[2016-11-21] MEDS ORDERED: LORazepam 1 MG TAB PO PRN (18:30)
[2016-11-21] MEDS ORDERED: PROCHLORPERAZINE 25 MG SUPP RECTAL PRN (18:30)
[2016-11-21] MEDS ORDERED: ACETAMINOPHEN 325 MG TAB PO PRN (18:30)
[2016-11-21] MEDS ORDERED: traMADol HCL 50 MG TAB PO PRN ×2 (18:30)
[2016-11-21] MEDS ORDERED: FLUMAZENIL 0.5 MG/5 ML VIAL IV PUSH PRN (18:30)
[2016-11-21] MEDS ORDERED: LORazepam 2 MG/ML VIAL IV PUSH PRN ×5 (18:30→22:00)
[2016-11-21] MEDS ORDERED: MAGNESIUM HYDROXIDE SUSP 30 ML CUP PO PRN (18:30)
[2016-11-21] MEDS ORDERED: LACTULOSE SYRUP 20 GM/30 ML CUP PO PRN (18:30)
[2016-11-21] MEDS ORDERED: BISACODYL 10 MG SUPP RECTAL PRN (18:30)
[2016-11-21] MEDS ORDERED: SENNOSIDES 8.6 MG TAB PO PRN (18:30)
[2016-11-21] MEDS ORDERED: ONDANSETRON HCL 4 MG/2 ML VIAL IVP PRN (18:30)
--- NOTE | 2016-11-21 18:36 | PD ---
Physical Exam Date Seen by Provider: Nov 21, 2016 Time Seen by Provider: 17:00 Narrative I, Dr. Rico, have reviewed the advance practice practitioner's documentation and am in agreement, met with the patient face to face, made the diagnosis, and the medical decision making was done by me. *My assessment and Findings: Patient seen and evaluated with PA, please see PA note for further details. Apparently found poorly responsive in a public bathroom, suspected overdose. Patient is known for history of polysubstance use. It is uncertain what he took. Narcan had been given and patient did appear more responsive after Narcan but is still fairly disoriented in the ER. Laboratory Tests Test 11/21/16 16:30 Red Blood Count 4.08 MIL/MM3 (4.50-5.90) Hemoglobin 10.8 GM/DL (13.0-17.0) Hematocrit 32.8 % (39.0-51.0) Mean Corpuscular Hemoglobin 26.5 PG (27.0-34.0) Monocytes (%) (Auto) 10.0 % (0.0-8.0) Estimat Glomerular Filtration Rate 88 ML/MIN (>89) Ammonia 42 MCMOL/L (11-32) Troponin I LESS THAN 0.02 NG/ML Salicylates Level LESS THAN 1.7 MG/DL Acetaminophen Level 4.2 MCG/ML (10.0-30.0) Last [address] 11/21/16 1609 Signed Impressions: Service Date/Time: Monday, November 21, 2016 17:20 - CONCLUSION: No acute disease. Jose Boyer MD FACR Chest X-Ray 11/21/16 1609 Signed Impressions: Service Date/Time: Monday, November 21, 2016 17:35 - CONCLUSION: Prominent azygos and vein, Underated, otherwise negative. Jose Boyer MD FACR GENERAL: Well-nourished, well-developed young male patient in moderate distress, awake but disoriented. Airway intact. Positive gag reflex. SKIN: Focused skin assessment warm/dry. HEAD: Normocephalic. EYES: No scleral icterus. No injection or drainage. Pupils are dilated bilaterally. NECK: trachea midline. No JVD or lymphadenopathy. CARDIOVASCULAR: Regular rate and rhythm without murmurs, gallops, or rubs. RESPIRATORY: Breath sounds equal bilaterally. No accessory muscle use. GASTROINTESTINAL: Abdomen soft, non-tender, nondistended. MUSCULOSKELETAL: No cyanosis, or edema. BACK: Nontender without obvious deformity. No CVA tenderness. Data Data Last Documented VS Vital Signs Date Time Temp Pulse Resp B/P (MAP) Pulse Ox O2 Delivery O2 Flow Rate FiO2 11/21/16:17 (74) Room Air 11/21/16 16:07 64 20 100 Orders Orders Electrocardiogram (11/21/16 16:09) Basic Metabolic Panel (Bmp) (11/21/16 16:09) Complete Blood Count With Diff (11/21/16 16:09) Prothrombin Time / Inr (Pt) (11/21/16 16:09) Act Partial Throm Time (Ptt) (11/21/16 16:09) Urinalysis - C+S If Indicated (11/21/16 16:09) Chest, Single Ap (11/21/16 16:09) Ct Brain W/O Iv Contrast(Rout) (11/21/16 16:09) Iv Access Insert/Monitor (11/21/16 16:09) Cath For Specimen (11/21/16 16:09) Ecg Monitoring (11/21/16 16:09) Oximetry (11/21/16 16:09) Sodium Chloride 0.9% Flush (Ns Flush) (11/21/16 16:15) Sodium Chlor 0.9% 1000 Ml Inj (Ns 1000 M (11/21/16 16:09) Drug Screen, Random Urine (11/21/16 16:09) Alcohol (Ethanol) (11/21/16 16:09) Salicylates (Aspirin) (11/21/16 16:09) Tylenol (Acetaminophen) (11/21/16 16:09) Ammonia (11/21/16 16:24) Creatine Kinase (Cpk) (11/21/16 16:24) Troponin I (11/21/16 16:24) Blood Glucose (11/21/16 16:24) Sodium Chloride 0.9% Flush (Ns Flush) (11/21/16 16:30) Hepatic Functional Panel (11/21/16 16:24) Lorazepam Inj (Ativan Inj) (11/21/16 16:30) Naloxone Inj (Narcan Inj) (11/21/16 17:00) Comprehensive Metabolic Panel (11/22/16 06:00) Free Thyroxine (T4) (11/22/16 06:00) Hemoglobin (Hgb) A1c (11/22/16 06:00) Magnesium (Mg) (11/22/16 06:00) Phosphorus (Po4) (11/22/16 06:00) Thyroid Stimulating Hormone (11/22/16 06:00) Complete Blood Count With Diff (11/22/16 06:00) Admit To Inpatient (11/21/16 ) Code Status (11/21/16 18:24) Vital Signs (Adult) Q4H (11/21/16 18:24) Neuro Checks Q4H (11/21/16 18:24) Activity Bed Rest (11/21/16 18:24) Bedside Glucose MAE.CSUGAR (11/21/16 18:24) Taping Foreman / Telemetry .CONTINUOUS (11/21/16 18:24) Intake + Output MAE.QSHIFT (11/21/16 18:24) Diet Npo (11/21/16 Dinner) D5-1/2 Ns + Kcl 20 Meq Inj (D5-1/2 Ns + (11/21/16 18:24) Sodium Chloride 0.9% Flush (Ns Flush) (11/21/16 18:30) Sodium Chloride 0.9% Flush (Ns Flush) (11/21/16 21:00) Acetaminophen (Tylenol) (11/21/16 18:30) Ondansetron Inj (Zofran Inj) (11/21/16 18:30) Prochlorperazine Supp (Compazine Supp) (11/21/16 18:30) Creatine Kinase (Cpk) (11/21/16 18:24) Creatine Kinase (Cpk) (11/22/16 00:24) Creatine Kinase (Cpk) (11/22/16 06:24) Troponin I (11/21/16 18:24) Troponin I (11/22/16 00:24) Troponin I (11/22/16 06:24) Electrocardiogram (11/21/16 18:24) Resp Oxygen Baldo C Titrat 1-4 L (11/21/16 ) Pt Request For Service (11/21/16 18:24) Ot Request For Service (11/21/16 18:24) Case Management Consult (11/21/16 18:24) Scd Bilateral/Knee High MAE.BID (11/21/16 18:24) Rolan Bilateral/Knee High MAE.QSHIFT (11/21/16 18:30) Ibuprofen (Motrin) (11/21/16 18:30) Morphine Inj (Morphine Inj) (11/21/16 18:30) Tramadol (Ultram) (11/21/16 18:30) Tramadol (Ultram) (11/21/16 18:30) Naloxone Inj (Narcan Inj) (11/21/16 18:30) Docusate Sodium-Senna (Fabby-Colace) (11/21/16 21:00) Magnesium Hydroxide Liq (Milk Of Magnesi (11/21/16 18:30) Sennosides (Senokot) (11/21/16 18:30) Bisacodyl Supp (Dulcolax Supp) (11/21/16 18:30) Lactulose Liq (Lactulose Liq) (11/21/16 18:30) Alcohol Withdrawal Asmt-Ciwa Q4HX18 (11/21/16 18:24) Flumazenil Inj (Romazicon Inj) (11/21/16 18:30) Lorazepam (Ativan) (11/21/16 18:30) Lorazepam Inj (Ativan Inj) (11/21/16 18:30) Lorazepam (Ativan) (11/21/16 18:30) Lorazepam Inj (Ativan Inj) (11/21/16 18:30) Lorazepam Inj (Ativan Inj) (11/21/16 18:30) Lorazepam Inj (Ativan Inj) (11/21/16 18:30) Haloperidol Inj (Haldol Inj) (11/21/16 18:30) Inpatient Certification (11/21/16 ) Oxcarbazepine (Trileptal) (11/21/16 21:00) Tamsulosin (Flomax) (11/21/16 21:00) (Nf) Fluoxetine (Prozac) (11/22/16 09:00) Admit Order (Ed Use Only) (11/21/16 18:29) Pantoprazole (Protonix) (11/21/16 21:00) Drug Screen, Random Urine (11/21/16 18:30) Ur Drug Screen W/Confirmation (11/21/16 18:30) Tylenol (Acetaminophen) (11/21/16 18:31) Salicylates (Aspirin) (11/21/16 18:31) Labs Laboratory Tests Test 11/21/16 16:30 White Blood Count 8.1 TH/MM3 Red Blood Count 4.08 MIL/MM3 Hemoglobin 10.8 GM/DL Hematocrit 32.8 % Mean Corpuscular Volume 80.5 FL Mean Corpuscular Hemoglobin 26.5 PG Mean Corpuscular Hemoglobin Concent 32.9 % Red Cell Distribution Width 17.0 % Platelet Count 326 TH/MM3 Mean Platelet Volume 7.6 FL Neutrophils (%) (Auto) 64.9 % Lymphocytes (%) (Auto) 22.9 % Monocytes (%) (Auto) 10.0 % Eosinophils (%) (Auto) 1.5 % Basophils (%) (Auto) 0.7 % Neutrophils # (Auto) 5.3 TH/MM3 Lymphocytes # (Auto) 1.9 TH/MM3 Monocytes # (Auto) 0.8 TH/MM3 Eosinophils # (Auto) 0.1 TH/MM3 Basophils # (Auto) 0.1 TH/MM3 CBC Comment DIFF FINAL Differential Comment Prothrombin Time 10.0 SEC Prothromb Time International Ratio 0.9 RATIO Activated Partial Thromboplast Time 27.1 SEC Blood Urea Nitrogen 13 MG/DL Creatinine 0.97 MG/DL Random Glucose 74 MG/DL Calcium Level 8.5 MG/DL Sodium Level 138 MEQ/L Potassium Level 4.0 MEQ/L Chloride Level 105 MEQ/L Carbon Dioxide Level 25.7 MEQ/L Anion Gap 7 MEQ/L Estimat Glomerular Filtration Rate 88 ML/MIN Total Bilirubin 0.3 MG/DL Direct Bilirubin 0.1 MG/DL Indirect Bilirubin 0.2 MG/DL Aspartate Amino Transf (AST/SGOT) 30 U/L Alanine Aminotransferase (ALT/SGPT) 27 U/L Alkaline Phosphatase 82 U/L Ammonia 42 MCMOL/L Total Creatine Kinase 241 U/L Troponin I LESS THAN 0.02 NG/ML Total Protein 7.0 GM/DL Albumin 3.6 GM/DL Salicylates Level LESS THAN 1.7 MG/DL Acetaminophen Level 4.2 MCG/ML Ethyl Alcohol Level LESS THAN 3 MG/DL [facility] Medical Record Reviewed: Yes Supervised Visit with NAKIA: Yes Differential Diagnosis Intentional overdose versus accidental overdose: Opiate overdose versus benzodiazepine's versus other medications versus alcohol intoxication versus intracranial injuries Narrative Course CAT scan did not show any signs of acute intracranial injuries. Lab work is otherwise unremarkable. Alcohol is not significantly elevated. At this point, plan would be to admit the patient for further treatment and observation for overdose. Aggregate critical care time was 20 minutes. Time to perform other separately billable procedures was not included in the critical care time. My time did not include minutes spent treating any other patients simultaneously or on activities that did not directly contribute to the patient's treatment. The services I provided to this patient were to treat and/or prevent clinically significant deterioration that could result in: Respiratory failure, intracranial hemorrhage, I provided critical care services requiring my management, as noted below: Chart data review, documentation time, medication orders and management, vital sign assessments/reviewing monitor data, ordering and reviewing lab tests, ordering and interpreting/reviewing x-rays and diagnostic studies, care of the patient and discussion of the patient with the admitting physicians. Diagnosis Primary Impression: Altered mental status Qualified Codes: R41.82 - Altered mental status, unspecified Additional Impression: Overdose Qualified Codes: T50.904A - Poisoning by unspecified drugs, medicaments and biological substances, undetermined, initial encounter Admitting Information Admitting Physician Requests: Admit Condition: Stable Alex Rico MD Nov 21, 2016 18:36
[2016-11-21 18:52] LABS: BLOOD, URINE NEG (NEG); GLUCOSE,URINE NEG (NEG); KETONE, URINE NEG (NEG); NITRITE,URINE NEG (NEG); PH, URINE 6.5 (5.0-8.5); URINE COLOR LIGHT-YELLOW (YELLW/STRAW)
[2016-11-21 18:54] LABS: COMMENT (UR) CULT NOT INDICATED; CULTURE IF INDICATED CULT NOT INDICATED
--- NOTE | 2016-11-21 20:35 | HHI.HP ---
[facility] Primary Care Physician Unknown Admission Diagnosis altered mental status, unknown overdose Diagnoses: Chief Complaint: AMS Travel History International Travel<30 Days: No Contact w/Intl Traveler <30 Da: No Traveled to Known Affected Are: No History of Present Illness Written by MARY LOU Somers acting as scribe for [Lucy] on 11/21/16 at 20: 31. 36 y/o male with a history of cervical dystonia, TBI, seizures, anxiety, depression, enlarged prostate and hypothyroid was brought by [facility] after being found on the bathroom floor of [address]. He has been given Narcan twice. Upon assessment patient is unable to provide any information. He wakes to sternal rub but does not follow commands. He is currently in 4 point restraints from being combative. Review of Systems ROS Limitations: Altered Mental Status Past Family Social History Past Medical History From EMR: Cervical dystonia TBI Enlarged prostate Anxiety Seizures Depression Hypothyroid Past Surgical History From EMR: Bladder surgery Reported Medications Reported Meds & Active Scripts Active Zofran Odt (Ondansetron Odt) 4 Mg Tab 4 Mg SL Q6HR PRN Klonopin (Clonazepam) 0.5 Mg Tab 0.5 Mg PO TID Hydrocodone-Acetaminophen 5-325 mg Tab 1 Tab PO Q4-6H PRN Reported Flomax (Tamsulosin HCl) 0.4 Mg Cap 0.4 Mg PO HS Prozac (Fluoxetine HCl) 40 Mg Cap 40 Mg PO DAILY Claritin (Loratadine) 10 Mg Cap 10 Mg PO DAILY Oxcarbazepine 600 Mg Tab 600 Mg PO BID Allergies: Coded Allergies: penicillin G (Unverified Allergy, Unknown, Swelling, 10/09/16) Active Ordered Medications Current Medications Medications (Trade) Dose Ordered Sig/Mya Route Start Time Stop Time Status Last Admin Potassium Chloride/Dextrose/ Sod Cl 1,000 ml @ 100 mls/hr Q10H IV 11/21/16 18:24 11/21/16 18:24 (NS Flush) 2 ml UNSCH PRN IV FLUSH 11/21/16 18:30 (NS Flush) 2 ml BID IV FLUSH 11/21/16 21:00 11/21/16 21:00 (Tylenol) 650 mg Q4H PRN PO 11/21/16 18:30 (Zofran Inj) 4 mg Q6H PRN IVP 11/21/16 18:30 (Compazine Supp) 25 mg Q12H PRN RECTAL 11/21/16 18:30 (Motrin) 400 mg Q6H PRN PO 11/21/16 18:30 (Morphine Inj) 2 mg Q3H PRN IV PUSH 11/21/16 18:30 (Ultram) 50 mg Q4H PRN PO 11/21/16 18:30 (Ultram) 100 mg Q4H PRN PO 11/21/16 18:30 (Narcan Inj) 0.4 mg UNSCH PRN IV PUSH 11/21/16 18:30 (Fabby-Colace) 1 tab BID PO 11/21/16 21:00 (Milk Of Magnesia Liq) 30 ml Q12H PRN PO 11/21/16 18:30 (Senokot) 17.2 mg Q12H PRN PO 11/21/16 18:30 (Dulcolax Supp) 10 mg DAILY PRN RECTAL 11/21/16 18:30 (Lactulose Liq) 30 ml DAILY PRN PO 11/21/16 18:30 (Romazicon Inj) 0.2 mg Q1M PRN IV PUSH 11/21/16 18:30 (Ativan) 1 mg Q4H PRN PO 11/21/16 18:30 (Ativan Inj) 1 mg Q4H PRN IV PUSH 11/21/16 18:30 (Ativan) 2 mg Q2H PRN PO 11/21/16 18:30 (Ativan Inj) 2 mg Q2H PRN IV PUSH 11/21/16 18:30 (Ativan Inj) 2 mg Q1H PRN IV PUSH 11/21/16 18:30 (Ativan Inj) 2 mg Q15M PRN IV PUSH 11/21/16 18:30 (Haldol Inj) 2 mg Q15M PRN IM 11/21/16 18:30 (Trileptal) 600 mg BID PO 11/21/16 21:00 (Flomax) 0.4 mg HS PO 11/21/16 21:00 (PROzac) 40 mg DAILY PO 11/22/16 09:00 (Protonix) 40 mg Q12HR PO 11/21/16 21:00 Family History Patient is unable to provide family history Social History Patient is unable to provide social history Physical Exam Vital Signs Vital Signs Date Time Temp Pulse Resp B/P (MAP) Pulse Ox O2 Delivery O2 Flow Rate FiO2 11/21/16 19:55 98 21 11/21/16 18:56 56 18 107/56 (73) 98 11/21/16 18:46 98 21 11/21/16 16:17 (74) Room Air 11/21/16 16:07 64 20 100 Room Air 11/21/16 16:07 110 20 111/56 (74) 100 Room Air 11/21/16 16:04 63 23 111/56 (74) 98 Physical Exam GENERAL: This is a obtunded patient, only responding to sternal rub SKIN: No rashes, ecchymoses or lesions. Cool and dry. HEAD: Atraumatic. Normocephalic. EYES: Pupils equal round and reactive. ENT: Nose without bleeding, purulent drainage or septal hematoma. Airway patent. NECK: Trachea midline. No JVD CARDIOVASCULAR: Regular rate and rhythm without murmurs, gallops, or rubs. RESPIRATORY: Clear to auscultation. Breath sounds equal bilaterally. No wheezes , rales, or rhonchi. GASTROINTESTINAL: Abdomen soft, non-tender, nondistended. MUSCULOSKELETAL: Extremities without clubbing, cyanosis, or edema. No calf tenderness. NEUROLOGICAL: Obtunded, only responding to sternal rub. Motor and sensory grossly within normal limits. Laboratory Laboratory Tests Test 11/21/16 16:30 11/21/16 18:30 White Blood Count 8.1 Red Blood Count 4.08 Hemoglobin 10.8 Hematocrit 32.8 Mean Corpuscular Volume 80.5 Mean Corpuscular Hemoglobin 26.5 Mean Corpuscular Hemoglobin Concent 32.9 Red Cell Distribution Width 17.0 Platelet Count 326 Mean Platelet Volume 7.6 Neutrophils (%) (Auto) 64.9 Lymphocytes (%) (Auto) 22.9 Monocytes (%) (Auto) 10.0 Eosinophils (%) (Auto) 1.5 Basophils (%) (Auto) 0.7 Neutrophils # (Auto) 5.3 Lymphocytes # (Auto) 1.9 Monocytes # (Auto) 0.8 Eosinophils # (Auto) 0.1 Basophils # (Auto) 0.1 CBC Comment DIFF FINAL Differential Comment Prothrombin Time 10.0 Prothromb Time International Ratio 0.9 Activated Partial Thromboplast Time 27.1 Blood Urea Nitrogen 13 Creatinine 0.97 Random Glucose 74 Calcium Level 8.5 Sodium Level 138 Potassium Level 4.0 Chloride Level 105 Carbon Dioxide Level 25.7 Anion Gap 7 Estimat Glomerular Filtration Rate 88 Total Bilirubin 0.3 Direct Bilirubin 0.1 Indirect Bilirubin 0.2 Aspartate Amino Transf (AST/SGOT) 30 Alanine Aminotransferase (ALT/SGPT) 27 Alkaline Phosphatase 82 Ammonia 42 Total Creatine Kinase 241 Troponin I LESS THAN 0.02 Total Protein 7.0 Albumin 3.6 Salicylates Level LESS THAN 1.7 Acetaminophen Level 4.2 Ethyl Alcohol Level LESS THAN 3 Urine Color LIGHT-YELLOW Urine Turbidity CLEAR Urine pH 6.5 Urine Specific [place] 1.007 Urine Protein NEG Urine Glucose (UA) NEG Urine Ketones NEG Urine Occult Blood NEG Urine Nitrite NEG Urine Bilirubin NEG Urine Urobilinogen LESS THAN 2.0 Urine Leukocyte Esterase NEG Urine RBC 1 Microscopic Urinalysis Comment CULT NOT INDICATED Urine Opiates Screen POS Urine Barbiturates Screen NEG Urine Amphetamines Screen NEG Urine Benzodiazepines Screen NEG Urine Cocaine Screen NEG Urine Cannabinoids Screen NEG Result Diagram: 11/21/16 1630 11/21/16 1630 Imaging Last Impressions Head CT 11/21/16 1609 Signed Impressions: Service Date/Time: Monday, November 21, 2016 17:20 - CONCLUSION: No acute disease. Jose Boyer MD FACR Chest X-Ray 11/21/16 1609 Signed Impressions: Service Date/Time: Monday, November 21, 2016 17:35 - CONCLUSION: Prominent azygos and vein, Underated, otherwise negative. Jose Boyer MD FACR Caprini VTE Risk Assessment Caprini VTE Risk Assessment: Mod/High Risk (score >= 2) Caprini Risk Assessment Model Point Value = 1 Point Value = 2 Point Value = 3 Point Value = 5 Age 41-60 Minor surgery BMI > 25 kg/m2 Swollen legs Varicose veins or History of unexplained or recurrent spontaneous Oral contraceptives or hormone replacement Sepsis (< 1 month) Serious lung disease, including pneumonia (< 1 month) Abnormal pulmonary function Acute myocardial infarction Congestive heart failure (< 1 month) History of inflammatory bowel disease Medical patient at bed rest Age 61-74 Arthroscopic surgery Major open surgery (> 45 min) Laparoscopic surgery (> 45 min) Malignancy Confined to bed (> 72 hours) Immobilizing plaster cast Central venous access Age >= 75 History of VTE Family history of VTE Factor V Leiden Prothrombin [id number] Lupus anticoagulant Anticardiolipin antibodies Elevated serum homocysteine Heparin-induced thrombocytopenia Other congenital or acquired thrombophilia Stroke (< 1 month) Elective arthroplasty Hip, pelvis, or leg fracture Acute spinal cord injury (< 1 month) Prophylaxis Regimen Total Risk Factor Score Risk Level Prophylaxis Regimen 0-1 Low Early ambulation 2 Moderate Order ONE of the following: *Sequential Compression Device (SCD) *Heparin 5000 units SQ BID 3-4 Higher Order ONE of the following medications: *Heparin 5000 units SQ TID *Enoxaparin/Lovenox 40 mg SQ daily (WT < 150 kg, CrCl > 30 mL/min) *Enoxaparin/Lovenox 30 mg SQ daily (WT < 150 kg, CrCl > 10-29 mL/min) *Enoxaparin/Lovenox 30 mg SQ BID (WT < 150 kg, CrCl > 30 mL/min) AND/OR *Sequential Compression Device (SCD) 5 or more Highest Order ONE of the following medications: *Heparin 5000 units SQ TID (Preferred with Epidurals) *Enoxaparin/Lovenox 40 mg SQ daily (WT < 150 kg, CrCl > 30 mL/min) *Enoxaparin/Lovenox 30 mg SQ daily (WT < 150 kg, CrCl > 10-29 mL/min) *Enoxaparin/Lovenox 30 mg SQ BID (WT < 150 kg, CrCl > 30 mL/min) AND *Sequential Compression Device (SCD) Assessment and Plan Problem List: (1) Encephalopathy acute ICD Code: G93.40 - Encephalopathy, unspecified Assessment and Plan 36 y/o male with a history of cervical dystonia, TBI, seizures, anxiety, depression, enlarged prostate and hypothyroid was brought by [facility] after being found on the bathroom floor of [address]. Encephalopathy, acute, unknown etiology, suspect drug overdose or possible seizure Drug screen positive for opiates, negative for benzodiazepines Head CT reviewed and shows no acute disease -Monitor in ICU -Neuro checks -EEG ordered -Cont home medication Trileptal -NPO -Ativan Prn for seizures Hypothyroid, chronic, unknown if patient is taking medication -TSH and T4 pending DVT prophylaxis: SCDs GI prophylaxis: Protonix This note was transcribed by scribe [Leanna Scott]. I, Dr. Colleen Ayala personally performed the history, physical exam, and medical decision making; and confirmed the accuracy of the information in the transcribed note. Authenticated by Dr. Colleen Ayala on 11/21/16 at 20:31. Discussed Condition With RN and ED physician Physician Certification 2 Midnight Certification Type: Admission for Inpatient Services Order for Inpatient Services The services are ordered in accordance with Medicare regulations or non- Medicare payer requirements, as applicable. In the case of services not specified as inpatient-only, they are appropriately provided as inpatient services in accordance with the 2-midnight benchmark. Estimated LOS (days): 4 days is the estimated time the patient will need to remain in the hospital, assuming treatment plan goals are met and no additional complications. Post-Hospital Plan: Not yet determined Leanna Scott Nov 21, 2016 20:34 Colleen Ayala MD Nov 23, 2016 10:17
[2016-11-21] MEDS: OXcarbazepine 600 MG TAB PO SCH (21:00)
[2016-11-21] MEDS: PANTOPRAZOLE SOD 40 MG DELAYED RELEASE TAB PO SCH (21:00)
[2016-11-21] MEDS: DOCUSATE SODIUM 50 MG/SENNA 8.6 MG TAB PO SCH (21:00)
[2016-11-21] MEDS: SODIUM CHLORIDE 0.9% FLUSH 10 ML FLUSH IV FLUSH SCH (21:00)
[2016-11-21] MEDS: TAMSULOSIN HCL 0.4 MG CAP PO SCH (21:00)
[2016-11-21] MEDS ORDERED: CHLORHEXIDINE GLUCONATE 2 % 1 PACK (2 CLOTHS)(extra cloths) TOPICAL PRN (22:30)
[2016-11-21] MEDS: CHLORHEXIDINE GLUCONATE 2 % 1 PACK (2 CLOTHS)(taper/protocol) TOPICAL SCH (22:43)
[2016-11-22] VITALS (15 sets, daily range): BP systolic 101–145; BP diastolic 57–96; PULSE 49–98; RESP 14–22; TEMP 97.8–98.8; O2SAT 98–100
[2016-11-22 00:15] LABS: ACETAMINOPHEN LESS THAN 2.0 MCG/ML (10.0-30.0)
[2016-11-22 00:18] LABS: CREATINE KINASE 242 U/L (39-308)
[2016-11-22 03:59] LABS: AUTOMATED NEUTROPHIL # 3.7 TH/MM3 (1.8-7.7); BASOPHIL % 0.7 % (0.0-2.0); EOSINOPHIL # 0.1 TH/MM3 (0-0.4); EOSINOPHIL % 1.3 % (0.0-4.0); HEMATOCRIT 35.4 % (39.0-51.0); HEMO FLAGS DIFF FINAL; LYMPH % 29.2 % (9.0-44.0); LYMPHOCYTE # 1.8 TH/MM3 (1.0-4.8); MEAN CELL VOLUME 81.4 FL (80.0-100.0); MEAN CORPUSCULAR HGB CONC 31.9 % (32.0-36.0); MONO % 9.5 % (0.0-8.0); NEUT % 59.3 % (16.0-70.0); PLATELET COUNT 366 TH/MM3 (150-450); RED BLOOD COUNT 4.35 MIL/MM3 (4.50-5.90); RED CELL DISTRIBUTION WIDTH 16.8 % (11.6-17.2); WHITE BLOOD COUNT 6.3 TH/MM3 (4.0-11.0)
[2016-11-22] MEDS: D5-1/2 NS + KCL 20 MEQ INJ 1,000 ML IV SCH ×2 (04:10→14:53)
[2016-11-22 04:11] LABS: ANION GAP 4 MEQ/L (5-15); AST (GOT) 19 U/L (15-37); BICARBONATE 29.6 MEQ/L (21.0-32.0); BLOOD UREA NITROGEN 7 MG/DL (7-18); CHLORIDE 110 MEQ/L (98-107); GLOMERULAR FILTRATION RATE 117 ML/MIN (>89); MAGNESIUM 2.3 MG/DL (1.5-2.5); SODIUM (NA) 144 MEQ/L (136-145)
[2016-11-22 04:20] LABS: ALKALINE PHOSPHATASE 77 U/L (45-117); ALT (GPT) 22 U/L (12-78); CREATINE KINASE 206 U/L (39-308); FREE T4 0.62 NG/DL (0.76-1.46); TOTAL BILIRUBIN ADULT 0.4 MG/DL (0.2-1.0)
--- NOTE | 2016-11-22 07:46 | EKG ---
Date Performed: 11/21/2016 Time Performed: 18:15:02 PTAGE: 36 years EKG: SINUS BRADYCARDIA BORDERLINE ECG Since PREVIOUS TRACING , no significant change noted PREVIOUS TRACIN06/10/2016 15.19 DOCTOR: Salima Hernandez Interpretating Date/Time 11/22/2016 07:45:28
[2016-11-22] MEDS: PANTOPRAZOLE SOD 40 MG DELAYED RELEASE TAB PO SCH ×2 (08:40→20:40)
[2016-11-22] MEDS: DOCUSATE SODIUM 50 MG/SENNA 8.6 MG TAB PO SCH ×2 (08:40→20:40)
[2016-11-22] MEDS: OXcarbazepine 600 MG TAB PO SCH ×2 (08:40→20:40)
[2016-11-22] MEDS: FLUoxetine HCL 20 MG CAP PO SCH (08:41)
[2016-11-22] MEDS: SODIUM CHLORIDE 0.9% FLUSH 10 ML FLUSH IV FLUSH SCH ×2 (08:41→20:40)
[2016-11-22] MEDS ORDERED: PNEUMOCOCCAL POLYVALENT INJ 25 MCG/0.5 ML SYR IM ONE (09:00)
[2016-11-22 15:56] LABS: HEMOGLOBIN A1a 1.2 %; HEMOGLOBIN A1b 1.7 %; HEMOGLOBIN Ao 85.7 %; HEMOGLOBIN P3 3.3 %
--- NOTE | 2016-11-22 16:13 | HHI.PR ---
Subjective Remarks no c/o . does not remember what had happened. Reports that he did take a few of his prescribed [place] for chronic neck pain. Denies any history of other drug abuse or use. Denies a history of IV drug use. Objective Vitals Vital Signs Date Time Temp Pulse Resp B/P (MAP) Pulse Ox O2 Delivery O2 Flow Rate FiO2 11/22/16 12:00 98.3 75 16 101/58 (72) 100 11/22/16 12:00 75 11/22/16 10:00 68 11/22/16 08:00 98.3 69 18 103/59 (74) 100 11/22/16 08:00 78 11/22/16 07:10 100 Nasal Cannula 2.00 11/22/16 06:00 75 11/22/16 04:00 58 11/22/16 04:00 98.5 67 17 145/96 (112) 100 11/22/16 03:32 100 21 11/22/16 02:00 50 11/22/16 00:00 49 11/22/16 00:00 97.8 49 14 105/63 (77) 100 11/21/16 22:00 97.5 55 20 118/64 (82) 96 11/21/16 22:00 51 11/21/16 21:22 49 20 123/76 (92) 100 Room Air 11/21/16 19:55 98 21 11/21/16 18:56 56 18 107/56 (73) 98 11/21/16 18:46 98 21 11/21/16 16:17 (74) Room Air 11/21/16 16:07 64 20 100 Room Air 11/21/16 16:07 110 20 111/56 (74) 100 Room Air I/O 11/21/16 11/21/16 11/21/16 11/22/16 11/22/16 11/22/16 07:00 15:00 23:00 07:00 15:00 23:00 Intake Total 1000 ml 0 ml Output Total 900 ml 1000 ml Balance 100 ml -1000 ml Intake Oral 0 ml IV Total 1000 ml Output Urine Total 900 ml 1000 ml # Voids 1 # Bowel Movements 0 Result Diagram: 11/22/1632111/22/16321 Objective Remarks GENERAL: This is a well-nourished, well-developed patient, in no apparent distress. CARDIOVASCULAR: Regular rate and rhythm RESPIRATORY: Clear to auscultation. Breath sounds equal bilaterally. No wheezes , rales, or rhonchi. GASTROINTESTINAL: Abdomen soft, non-tender, nondistended. Normal active bowel sounds MUSCULOSKELETAL: Extremities without clubbing, cyanosis, or edema. NEURO: Alert & Oriented x4 to person, place, time, situation. Moves all ext x4 , neurovascular intact with good 2+ PT and DP pulses Right lower toe - bruising of the right toenail, likely a nail hematoma with no pain. No signs of infection seen. A/P Problem List: (1) Encephalopathy acute ICD Code: G93.40 - Encephalopathy, unspecified Assessment and Plan 36 y/o male with a history of cervical dystonia, TBI, seizures, anxiety, depression, enlarged prostate and hypothyroid was brought by [facility] after being found on the bathroom floor of [address]. Encephalopathy, acute, unknown etiology, suspect drug overdose or possible seizure May be due to opiate overdose, patient counseled on safe use of his chronic prescriptive opiates. Drug screen positive for opiates, negative for benzodiazepines Head CT reviewed and shows no acute disease he is to follow-up with his primary care physician. He has been stable in the ICU. He is alert and going 4. He does not remember what happened. He denies any suicidal ideations. EEG showed no active seizure. Continue with home medication Trileptal and follow with primary care physician. No signs of active seizure during the ICU stay. Patient states in the past history he's told his I will was high therefore stopped taking his medications. Labs are reviewed with patient he is to follow with primary care physician for adjustment of his thyroid medication. He does not remember the name of the medication. DVT prophylaxis: SCDs GI prophylaxis: Protonix Discharge Planning Discharge patient to home Condition on discharge: Improved Regular Diet as tolerated Ad Anamaria activity No new Rx written: Follow-up with primary care physician Tatyana Novoa MD Nov 22, 2016 16:13
[2016-11-22] MEDS: TAMSULOSIN HCL 0.4 MG CAP PO SCH (20:40)
[2016-11-23] VITALS: BP 113/63; PULSE 79; RESP 21; TEMP 98.6; O2SAT 99
[2016-11-23 02:00] VITALS: PULSE 63
[2016-11-23] MEDS: CHLORHEXIDINE GLUCONATE 2 % 1 PACK (2 CLOTHS)(taper/protocol) TOPICAL SCH (03:59)
[2016-11-23 04:00] VITALS: BP 99/50; PULSE 77; RESP 14; TEMP 98.6; O2SAT 98
[2016-11-23 06:00] VITALS: PULSE 66
[2016-11-23 08:00] VITALS: BP 100/59; PULSE 91; RESP 21; TEMP 98.3; O2SAT 96
[2016-11-23] MEDS: SODIUM CHLORIDE 0.9% FLUSH 10 ML FLUSH IV FLUSH SCH (08:40)
[2016-11-23] MEDS: PANTOPRAZOLE SOD 40 MG DELAYED RELEASE TAB PO SCH (08:40)
[2016-11-23] MEDS: OXcarbazepine 600 MG TAB PO SCH (08:41)
[2016-11-23] MEDS: FLUoxetine HCL 20 MG CAP PO SCH (08:41)
[2016-11-23] MEDS: DOCUSATE SODIUM 50 MG/SENNA 8.6 MG TAB PO SCH (08:41)
--- NOTE | 2016-11-23 08:44 | MG ---
cc: JEVON YANG Lab No:[id number] Date: 11/22/16 Age: Sex: M Race: Awake, drowsy, asleep 36-year-old man, when into the bathroom, was still in the bathroom, found on the floor unconscious. Given Narcan. Polysubstance abuse. Trileptal Prozac Abnormal symmetric 9-10 Hz 50 microvolt posterior rhythm is seen. The recording overall is synchronous and symmetric. No hemisphere asymmetries are noted. Photic stimulation was performed without significant posterior driving. Hyperventilation was performed with good effort without change in the background. IMPRESSION Normal awake electroencephalogram. No evidence for a focal or diffuse abnormality. MD JOSSY Monte/ /9:08 PM /8:34 AM
[2016-11-23 10:00] VITALS: PULSE 91
[2016-11-23] MEDS ORDERED: INFLUENZA VIRUS VACCINE (QUADRIVALENT) 0.5 ML SYR IM ONE (10:00)
--- NOTE | 2016-11-23 12:25 | HHI.PR ---
Subjective Remarks No complaints. Doing okay. Tolerating diet. Denies suicidal ideation or drug abuse. Denies intentional drug overdose Objective Vitals Vital Signs Date Time Temp Pulse Resp B/P (MAP) Pulse Ox O2 Delivery O2 Flow Rate FiO2 11/23/16 10:00 91 11/23/16 08:00 98.3 91 21 100/59 (73) 96 11/23/16 08:00 91 11/23/16 06:00 66 11/23/16 04:00 98.6 77 14 99/50 (66) 98 11/23/16 04:00 77 11/23/16 02:00 63 11/23/16 00:00 98.6 79 21 113/63 (80) 99 11/23/16 00:00 79 11/22/16 22:00 63 11/22/16 20:37 99 21 11/22/16 20:00 85 11/22/16 20:00 98.5 85 22 107/57 (74) 98 11/22/16 18:00 90 11/22/16 16:00 98.8 93 18 113/63 (80) 100 11/22/16 16:00 98 11/22/16 14:00 74 I/O 11/22/16 11/22/16 11/22/16 11/23/16 11/23/16 11/23/16 07:00 15:00 23:00 07:00 15:00 23:00 Intake Total 0 ml 2899 ml Output Total 1000 ml 2000 ml 950 ml Balance -1000 ml 899 ml -950 ml Intake Oral 0 ml 600 ml IV Total 2299 ml Output Urine Total 1000 ml 2000 ml 950 ml # Bowel Movements 0 0 Result Diagram: 11/22/16 0322 11/22/16 0322 Objective Remarks GENERAL: This is a well-nourished, well-developed patient, in no apparent distress. CARDIOVASCULAR: Regular rate and rhythm RESPIRATORY: Clear to auscultation. Breath sounds equal bilaterally. No wheezes , rales, or rhonchi. GASTROINTESTINAL: Abdomen soft, non-tender, nondistended. Normal active bowel sounds MUSCULOSKELETAL: Extremities without clubbing, cyanosis, or edema. NEURO: Alert & Oriented x4 to person, place, time, situation. Moves all ext x4. A/P Problem List: (1) Encephalopathy acute ICD Code: G93.40 - Encephalopathy, unspecified Assessment and Plan 36 y/o male with a history of cervical dystonia, TBI, seizures, anxiety, depression, enlarged prostate and hypothyroid was brought by [facility] after being found on the bathroom floor of [address]. Encephalopathy, acute, unknown etiology, suspect drug overdose; seizures ruled out as EEG showed no active seizures. May be due to opiate overdose, patient counseled on safe use of his chronic prescriptive opiates. Drug screen positive for opiates, negative for benzodiazepines Head CT reviewed and shows no acute disease he is to follow-up with his primary care physician. He has been stable in the ICU. He is alert and going 4. He does not remember what happened. He denies any suicidal ideations. EEG showed no active seizure. Continue with home medication Trileptal and follow with primary care physician. No signs of active seizure during the ICU stay. Patient states in the past his thyroid has been high and medication was adjusted therefore stopped taking his medications. Labs are reviewed with patient he is to follow with primary care physician for adjustment of his thyroid medication. He does not remember the name of the medication or current dosage. DVT prophylaxis: SCDs GI prophylaxis: Protonix Discharge Planning Discharge patient to home Condition on discharge: Improved Regular Diet as tolerated Ad Anamaria activity No new Rx written: Follow-up with primary care physician Tatyana Novoa MD Nov 23, 2016 12:25
--- NOTE | 2016-11-23 12:27 | HHI.DS ---
Discharge Summary Admission Date Nov 21, 2016 at 18:31 Discharge Date: Nov 23, 2016 Admitting Diagnosis altered mental status, unknown overdose (1) Encephalopathy acute ICD Code: G93.40 - Encephalopathy, unspecified Diagnosis: Principal Status: Acute Procedures none Brief History - From Admission Obtained from attending physician's H and P . 36 y/o male with a history of cervical dystonia, TBI, seizures, anxiety, depression, enlarged prostate and hypothyroid was brought by [facility] after being found on the bathroom floor of [address]. He has been given Narcan twice. Upon assessment patient is unable to provide any information. He wakes to sternal rub but does not follow commands. He is currently in 4 point restraints from being combative. CBC/BMP: 11/22/16 0322 11/22/16 0322 Significant Findings Laboratory Tests Test 11/21/16 16:30 11/21/16 18:30 11/21/16 22:25 11/21/16 23:08 Red Blood Count 4.08 MIL/MM3 (4.50-5.90) Hemoglobin 10.8 GM/DL (13.0-17.0) Hematocrit 32.8 % (39.0-51.0) Mean Corpuscular Hemoglobin 26.5 PG (27.0-34.0) Monocytes (%) (Auto) 10.0 % (0.0-8.0) Estimat Glomerular Filtration Rate 88 ML/MIN (>89) Ammonia 42 MCMOL/L (11-32) Troponin I LESS THAN 0.02 NG/ML LESS THAN 0.02 NG/ML Salicylates Level LESS THAN 1.7 MG/DL Acetaminophen Level 4.2 MCG/ML (10.0-30.0) LESS THAN 2.0 MCG/ML Urine Opiates Screen POS (NEG) Test 11/22/16 03:22 Red Blood Count 4.35 MIL/MM3 (4.50-5.90) Hemoglobin 11.3 GM/DL (13.0-17.0) Hematocrit 35.4 % (39.0-51.0) Mean Corpuscular Hemoglobin 26.0 PG (27.0-34.0) Mean Corpuscular Hemoglobin Concent 31.9 % (32.0-36.0) Monocytes (%) (Auto) 9.5 % (0.0-8.0) Random Glucose 113 MG/DL (74-106) Albumin 3.3 GM/DL (3.4-5.0) Calcium Level 8.3 MG/DL (8.5-10.1) Chloride Level 110 MEQ/L (98-107) Anion Gap 4 MEQ/L (5-15) Troponin I LESS THAN 0.02 NG/ML Free Thyroxine 0.62 NG/DL (0.76-1.46) Thyroid Stimulating Hormone 3rd Gen 0.309 uIU/ML (0.358-3.740) Imaging Last Impressions Head CT 11/21/16 1609 Signed Impressions: Service Date/Time: Monday, November 21, 2016 17:20 - CONCLUSION: No acute disease. Jose Boyer MD FACR Chest X-Ray 11/21/16 160 Signed Impressions: Service Date/Time: Monday, November 21, 2016 17:35 - CONCLUSION: Prominent azygos and vein, Underated, otherwise negative. Jose Boyer MD FACR PE at Discharge GENERAL: This is a well-nourished, well-developed patient, in no apparent distress. CARDIOVASCULAR: Regular rate and rhythm RESPIRATORY: Clear to auscultation. Breath sounds equal bilaterally. No wheezes , rales, or rhonchi. GASTROINTESTINAL: Abdomen soft, non-tender, nondistended. Normal active bowel sounds MUSCULOSKELETAL: Extremities without clubbing, cyanosis, or edema. NEURO: Alert & Oriented x4 to person, place, time, situation. Moves all ext x4. Hospital Course 36-year-old male was found with altered mental status in the middle of 711. He does have history of seizure disorder and has not had any active seizures during the hospitalization and had a negative EEG. In addition he was found that he had both opiates in urine drug screen and acetaminophen levels in the blood which he takes chronically for chronic neck pain. It was felt this likely was due to overuse of his prescribed opiates. He was counseled on risks of continued and improper use of dosing of his prescribed opiates of his chronic pain. He was Sirisha acted initially in the hospitalization is awaiting psychiatry at this time to lift the Grimm act for discharge to home with outpatient follow-up. Pt Condition on Discharge: Good Discharge Disposition: Discharge Home Discharge Time: <= 30 minutes Discharge Instructions DIET: Follow Instructions for: As Tolerated, No Restrictions Activities you can perform: Regular-No Restrictions Follow up Referrals: PCP Follow-up Continued Medications: Clonazepam (Klonopin) 0.5 Mg Tab 0.5 MG PO TID for Anxiety, #30 TAB 0 Refills Fluoxetine (Prozac) 40 Mg Cap 40 MG PO DAILY, #30 CAP 0 Refills Loratadine (Claritin) 10 Mg Cap 10 MG PO DAILY for Allergy Management, CAP 0 Refills Ondansetron Odt (Zofran Odt) 4 Mg Tab 4 MG SL Q6HR PRN for Nausea/Vomiting, #7 TAB 0 Refills Oxcarbazepine (Oxcarbazepine) 600 Mg Tab 600 MG PO BID for Seizure Control, #60 TAB 0 Refills Tamsulosin (Flomax) 0.4 Mg Cap 0.4 MG PO HS for Manage Prostate Problems, #30 CAP 0 Refills Discontinued Medications: Hydrocodone-Acetaminophen (Hydrocodone-Acetaminophen) 5-325 mg Tab 1 TAB PO Q4-6H PRN for PAIN SCALE 6 TO 10, #20 TAB Tatyana Novoa MD Nov 23, 2016 12:27
--- NOTE | 2016-11-23 13:21 | PD.PSY.CON ---
Provisional Diagnosis Admission Date Nov 21, 2016 at 18:31 Rover I. Benzodiazepines and opiates use disorder, history of depression Rover II. Deferred Rover III. Cervical dystonia History of Present Illness Service Psychiatry Consult Requested By Reason for Consult Grimm acted Primary Care Physician Unknown HPI The patient is a 36 year old man, domiciled with his godfather, single , unemployed, with psychiatric history of depression, anxiety, no previous psychiatric hospitalizations, opiates and benzodiazepines use disorder, he also has documented history of polysubstance dependence, he is known by the psychiatric service, with a medical history of cervical dystonia, TBI, enlarged prostate and hypothyroid was brought by [facility] after being found on the bathroom floor of [employer]Encephalopathy, acute, unknown etiology, suspect drug overdose; seizures ruled out as EEG showed no active seizures. May be due to opiate overdose, patient counseled on safe use of his chronic prescriptive opiates. Drug screen positive for opiates, negative for benzodiazepines. Head CT reviewed and shows no acute disease he is to follow-up with his primary care physician. He has been stable in the ICU. Consulted to psychiatry to assess potential suicidal attempt. On psychiatric evaluation patient is calm, cooperative. Patient says that he doesn't really remember what happened to him. He took his usual medications, became less sleepy in [employer], went to the bathroom and the next thing he knew his of the police was not taking his door. Patient denies suicidal intentions or ideation. He denies depressive symptoms, he denies anxiety, he denies raquel, he denies psychosis, he denies homicidal ideation, he denies visual and auditory hallucinations. She is oriented 3, attention deficit, no fluctuation of consciousness, no gross cognitive impairment present at this moment. Patient denies the use of illicit drugs and alcohol. Review of Systems Constitutional: DENIES: Diaphoretic episodes, Fatigue, Fever, Weight gain, Weight loss, Chills, Dizziness, Change in appetite, Night Sweats Endocrine: DENIES: Heat/cold intolerance, Polydipsia, Polyuria, Polyphagia Eyes: DENIES: Blurred vision, Diplopia, Eye inflammation, Eye pain, Vision loss , Photosensitivity, Double Vision Ears, nose, mouth, throat: DENIES: Tinnitus, Hearing loss, Vertigo, Nasal discharge, Oral lesions, Throat pain, Hoarseness, Ear Pain, Running Nose, Epistaxis, Sinus Pain, Toothache, Odynophagia Respiratory: DENIES: Apneas, Cough, Snoring, Wheezing, Hemoptysis, Sputum production, Shortness of breath Cardiovascular: DENIES: Chest pain, Palpitations, Syncope, Dyspnea on Exertion , PND, Lower Extremity Edema, Orthopnea, Claudication Gastrointestinal: DENIES: Abdominal pain, Black stools, Bloody stools, Constipation, Diarrhea, Nausea, Vomiting, Difficulty Swallowing, Anorexia Musculoskeletal: DENIES: Joint pain, Muscle aches, Stiffness, Joint Swelling, Back pain, Neck pain Integumentary: DENIES: Abnormal pigmentation, Nail changes, Pruritus, Rash Hematologic/lymphatic: DENIES: Bruising, Lymphadenopathy Immunologic/allergic: DENIES: Eczema, Urticaria Neurologic: DENIES: Abnormal gait, Headache, Localized weakness, Paresthesias, Seizures, Speech Problems, Tremor, Poor Balance Psychiatric: DENIES: Anxiety, Confusion, Mood changes, Depression, Hallucinations, Agitation, Suicidal Ideation, Homicidal Ideation, Delusions Past Family Social History Coded Allergies: penicillin G (Unverified Allergy, Unknown, Swelling, 10/09/16) Active Scripts Ondansetron Odt (Zofran Odt) 4 Mg Tab, 4 MG SL Q6HR Y for Nausea/Vomiting, #7 TAB 0 Refills Prov:Alex Rico MD 06/25/16 Clonazepam (Klonopin) 0.5 Mg Tab, 0.5 MG PO TID for Anxiety, #30 TAB 0 Refills Prov:Cherelle Lawson MD 04/03/16 Reported Medications Tamsulosin (Flomax) 0.4 Mg Cap, 0.4 MG PO HS for Manage Prostate Problems, #30 CAP 0 Refills 06/25/16 Fluoxetine (Prozac) 40 Mg Cap, 40 MG PO DAILY, #30 CAP 0 Refills 06/10/16 Loratadine (Claritin) 10 Mg Cap, 10 MG PO DAILY for Allergy Management, CAP 0 Refills 06/10/16 Oxcarbazepine (Oxcarbazepine) 600 Mg Tab, 600 MG PO BID for Seizure Control, # 60 TAB 0 Refills 06/10/16 Discontinued Scripts Hydrocodone-Acetaminophen (Hydrocodone-Acetaminophen) 5-325 mg Tab, 1 TAB PO Q4- 6H Y for PAIN SCALE 6 TO 10, #20 TAB Prov:Michelle Villegas MD 02/13/16 Current Medications Medications (Trade) Dose Ordered Sig/Mya Route Start Time Stop Time Status Last Admin (NS Flush) 2 ml UNSCH PRN IV FLUSH 11/21/16 18:30 (NS Flush) 2 ml BID IV FLUSH 11/21/16 21:00 11/23/16 08:40 (Tylenol) 650 mg Q4H PRN PO 11/21/16 18:30 (Zofran Inj) 4 mg Q6H PRN IVP 11/21/16 18:30 (Narcan Inj) 0.4 mg UNSCH PRN IV PUSH 11/21/16 18:30 (Fabby-Colace) 1 tab BID PO 11/21/16 21:00 11/22/16 20:40 (Milk Of Magnesia Liq) 30 ml Q12H PRN PO 11/21/16 18:30 (Dulcolax Supp) 10 mg DAILY PRN RECTAL 11/21/16 18:30 (Trileptal) 600 mg BID PO 11/21/16 21:00 11/23/16 08:41 (Flomax) 0.4 mg HS PO 11/21/16 21:00 11/22/16 20:40 (PROzac) 40 mg DAILY PO 11/22/16 09:00 11/23/16 08:41 (Protonix) 40 mg Q12HR PO 11/21/16 21:00 11/23/16 08:40 (Ativan Inj) 1 mg Q15M PRN IV PUSH 11/21/16 22:00 Miscellaneous Information Patient in critical care unit? Ass... [id number] .XX 11/21/16 22:30 (Chlorhexidine 2% Cloth) 3 pack DAILY@04 TOPICAL 11/22/16 04:00 11/26/16 04:01 11/23/16 03:59 (Chlorhexidine 2% Cloth) 3 pack UNSCH PRN TOPICAL 11/21/16 22:30 11/26/16 22:18 Family History He denies family psychiatric history Social History Patient was born and raised in [place], he lives in [facility] with his godfather, single, unemployed, highest level of education is high school Patient's Strengths (min. 2) Verbal communication Physical Exam No tremors, no EPS, psychomotor agitation or retardation, no stiffness present Vital Signs Vital Signs Date Time Temp Pulse Resp B/P (MAP) Pulse Ox O2 Delivery O2 Flow Rate FiO2 11/23/16 10:00 91 11/23/16 08:00 98.3 21 100/59 (73) 96 11/22/16 20:37 21 11/22/16 07:10 Nasal Cannula 2.00 I/O 11/23/16 11/23/16 11/24/16 08:00 16:00 00:00 Output Total 950 ml Balance -950 ml Mental Status Examination Appearance man, age appearing, [facility], calm and cooperative Speech: Unremarkable Orientation: x3 Memory: Unremarkable Thought Process: Logical Thought Content: Unremarkable Hallucination Type: None Suicidal Ideation: No Previous Suicide Attempts: No Previous Homicide Attempts: No Insight: Good Affect: Good Mood: Appropriate Motor Activity: Normal gait Assessment & Plan Problem List: (1) Opioid abuse with intoxication delirium ICD Codes: F11.121 - Opioid abuse with intoxication delirium Assessment & Plan: On psychiatric evaluation today the patient does not present any significant evidence of depressive symptoms, anxiety, raquel or psychosis. Patient denies suicidal and homicidal ideation, he denies visual and auditory hallucinations. His recent bizarre behavior in seems to be the result of opiates intoxication. She has an strong history of benzodiazepines, alcohol and opiates use disorder. He does not meet criteria for involuntary psychiatric admission at this moment. Patient is widely educated dose of avoiding illegal drugs, taking medications as prescribed, keep his sobriety. Patient is not interested in detox/rehabilitation. He seems to be a period of pre-contemplation of his substance abuse disorder. No psychotropics recommended at this moment. Grimm act will be lifted. Assessment & Plan Estimated LOS: Speedy Chavez MD Nov 23, 2016 13:21
== END 2016-11-23 13:00 | disposition home or self-care (01) | DRG 917 ==
LOC: NEPE 15:59 → NEDA 18:31 → HIMW 22:00
PROVIDERS: ADMIT Family Medicine; ATTEND Family Medicine
DX: T40.601A Poisoning by unspecified narcotics, accidental (unintentional), initial encounter (principal); G93.40 Encephalopathy, unspecified; Y92.512 Supermarket, store or market as the place of occurrence of the external cause; E03.9 Hypothyroidism, unspecified; G40.909 Epilepsy, unspecified, not intractable, without status epilepticus; K21.9 Gastro-esophageal reflux disease without esophagitis; N40.0 Benign prostatic hyperplasia without lower urinary tract symptoms; G89.29 Other chronic pain; M54.2 Cervicalgia; Z78.1 Physical restraint status; F41.8 Other specified anxiety disorders; G24.9 Dystonia, unspecified
CPT/HCPCS: 70450; 71010; 80048; 80053; 80076; 80307; 81001; 82140; 82550; 83036; 83735; 84100; 84439; 84443; 84484; 85025; 85610; 85730; 87641; 90732; 93005; 95819; 96361; 96374; 96375; J2060; J2310; J3480; J7030